=== PATIENT | male | born 1940 | race African-American/Black ===

== ENCOUNTER → 2016-08-14 | Outpatient (CLI) | payer MEDICARE, OTHER ==
[2014-06-28 10:47] VITALS: BP 120/70
[~2016-08-14] MED LIST: ATROVENT HFA12.9 GM IH; CONTRAST GIVEN MC PRN; FLUT1DIS3 IH; INSU100I17 SQ; INSU100I27 SQ; IOHEXOL 300 MG/ML 75 ML VIAL IV ONE; LOSA1TAB17 PO; METF500T9 PO; PROAIR HFA8.5 GM INH; WARF1TAB74 PO; WARF5TAB7 PO
[2016-08-14 08:16] LABS: CREATININE 1.5 mg/dL (0.7-1.3); GFR 54.9
--- NOTE | 2016-08-14 09:06 | RAD ---
Indication follow-up lung malignancy. Contrast imaging through the chest was performed and is compared to an examination 02/02/2016. 60 cc of Omnipaque 300 were administered intravenously. No acute or significant finding is seen in the upper abdomen. The thoracic aorta appears unremarkable. Coronary artery calcification is noted. No significant hilar or mediastinal adenopathy is seen. Postoperative/therapeutic changes are noted in the right upper lung field. An acute finding in the chest is not seen. There is some minimal pleural thickening in the right midlung posteriorly unchanged. In the superior segment of the left lower lobe there is a slightly bilobed pulmonary nodule measuring 8 to 9 mm, image 15 series 2, clearly larger than on the previous exam. The nodule is not apparent on an examination 07/27/2015. Neoplastic disease, second primary, is the leading consideration. Isolated metastatic disease accounting for the finding is possible but felt less likely. IMPRESSION: No evidence of tumor recurrence in the right lung. Nodule in the left lung larger than on the previous examination very suspect for a second primary. PQRS Compliance Statement: One or more of the following individualized dose reduction techniques were utilized for this examination: 1. Automated exposure control 2. Adjustment of the mA and/or kV according to patient size 3. Use of iterative reconstruction technique
== END | disposition home or self-care (01) ==
LOC: CT 07:29
PROVIDERS: ATTEND Radiology Radiation Oncology
DX: C34.90 Malignant neoplasm of unspecified part of unspecified bronchus or lung (principal)
CPT/HCPCS: 36415; 71260; 82565; Q9967

== ENCOUNTER → 2016-11-20 | Outpatient (CLI) | payer MEDICARE ==
[2014-06-28 10:47] VITALS: BP 120/70
[~2016-11-20] MED LIST changes: -CONTRAST GIVEN MC PRN; -IOHEXOL 300 MG/ML 75 ML VIAL IV ONE; +METF100010 PO
--- NOTE | 2016-11-20 10:24 | RAD ---
Examination: CT chest without contrast History: History of lung cancer, lung nodule follow-up comparison: 08/14/2016 Technique: Axial CT images of the chest were performed with contrast. Coronal and sagittal reformats were performed PQRS Compliance Statement: One or more of the following individualized dose reduction techniques were utilized for this examination: 1. Automated exposure control 2. Adjustment of the mA and/or kV according to patient size 3. Use of iterative reconstruction technique Findings: The visualized thyroid gland grossly appears unremarkable. The central airways are patent. Postoperative changes identified in the right upper lobe with the linear scarring or chronic consolidation grossly similar to prior exam. There is a 8.5 mm nodule identified in the left lower lobe of the lung superiorly and medially, more or less similar in size compared to prior exam. No evidence of pleural effusion or pneumothorax. Diffuse coronary artery calcifications. The ascending aorta measures 3.6 cm in transverse dimension. The visualized noncontrasted liver, spleen, adrenals grossly appears unremarkable. Moderate degenerative changes thoracic spine. Impression: 1. The previously visualized pulmonary nodule is identified in the left lower lobe of the lung measuring 8.5 mm more or less similar to prior exam, although it appears prominent on the coronal image series 5 image 67 compared to prior prior CT exam on coronal image series 4 image 41 which is probably due to difference in slice thickness between the 2 CTs. Given increase in size from 02/02/2016 to 08/14/2016 , close interval follow-up CT in 3 months is recommended. 2. Post therapeutic changes right upper lobe of the lung.
== END | disposition home or self-care (01) ==
LOC: CT 07:45
PROVIDERS: ATTEND Radiology Radiation Oncology
DX: C34.90 Malignant neoplasm of unspecified part of unspecified bronchus or lung (principal)
CPT/HCPCS: 71250

== ENCOUNTER → 2017-05-14 | Outpatient (CLI) | payer MEDICARE | END | disposition home or self-care (01) | LOC: CT 09:37 | DX: C34.91 Malignant neoplasm of unspecified part of right bronchus or lung (principal); I77.810 Thoracic aortic ectasia; I70.0 Atherosclerosis of aorta; R91.1 Solitary pulmonary nodule; Z92.3 Personal history of irradiation; Z92.21 Personal history of antineoplastic chemotherapy | CPT/HCPCS: 71250 ==

== ENCOUNTER → 2017-05-23 | Outpatient (CLI) | payer MEDICARE | END | disposition home or self-care (01) | LOC: PETSC 11:26 | DX: C34.91 Malignant neoplasm of unspecified part of right bronchus or lung (principal); J98.11 Atelectasis; R91.1 Solitary pulmonary nodule | CPT/HCPCS: 78815; A9552 ==

== ENCOUNTER 2018-11-29 20:21 | Inpatient (IN) | payer MEDICARE ==
[~2018-11-29] VITALS: Ht 175.3 cm; Wt 83.0 kg
[~2018-11-29 20:21] MED LIST changes: +ALBU2.5V8 INH; -LOSA1TAB17 PO; +LOSA1TAB22 PO; +METF500T11 PO; -METF500T9 PO; -PROAIR HFA8.5 GM INH; +WARF-31 PO; -WARF5TAB7 PO
[2018-11-29] MEDS ORDERED: IV NORMAL SALINE 1000ML BAG 1,000 ML IV ONE ×2 (20:30→23:15)
[2018-11-29] MEDS ORDERED: IV NORMAL SALINE 500ML BAG 500 ML IV ONE (20:30)
[2018-11-29 22:24] LABS: BASE EXCESS ABG -12 mmol/L (-3-3); HCO3 ABG 12 mmol/L (21-28); PCO2 ABG 24 mmHg (35-46); PO2 ABG 100 mmHg (65-108); SAT O2 ABG 97 % (92-99)
[2018-11-29 22:29] LABS: BASO # 0.1 x10^3/uL (0.0-0.2); BASO % 1 % (0-3); EOS % 0 % (0-3); HEMATOCRIT 52.1 % (39.0-53.0); HEMOGLOBIN 16.9 g/dL (13.0-17.5); LYMPH # 0.9 x10^3/uL (1.0-4.8); LYMPH % 5 % (24-48); MEAN CORPUSCULAR HEMOGLOBIN 28 pg (25-35); MEAN CORPUSCULAR HGB CONC 32 g/dL (31-37); MEAN CORPUSCULAR VOLUME 87 fL (79-100); MONO # 0.8 x10^3/uL (0.0-1.1); MONO % 5 % (0-9); NEUT # 16.1 x10^3/uL (1.8-7.7); NEUT % 90 % (31-73); PLATELET COUNT 330 x10^3/uL (140-400); RED BLOOD COUNT 6.02 x10^6/uL (4.30-5.70); RED CELL DISTRIBUTION WIDTH 14.6 % (11.5-14.5)
[2018-11-29 22:43] LABS: ALBUMIN 3.9 g/dL (3.4-5.0); ALBUMIN/GLOBULIN RATIO 0.8 (1.0-1.7); CALCIUM 10.3 mg/dL (8.5-10.1); CREATININE 2.6 mg/dL (0.7-1.3); GFR 28.9; TOTAL BILIRUBIN 0.5 mg/dL (0.2-1.0); TOTAL PROTEIN 9.1 g/dL (6.4-8.2)
[2018-11-29] MEDS ORDERED: LIDOCAINE 2% JELLY 6ML IN APPLICATOR. MM ONE (22:45)
[2018-11-29 22:47] LABS: FIO2 ABG 21
[2018-11-29 22:51] LABS: % BANDS 2 % (0-9); % LYMPHS 3 % (24-48); % MONOS 5 % (0-10); % SEGS 90 % (35-66); PLT ESTIMATE ADEQUATE (ADEQUATE)
[2018-11-29 22:58] LABS: POTASSIUM 6.6 mmol/L (3.5-5.1)
[2018-11-29 23:00] LABS: BILIRUBIN,URINE NEGATIVE (NEG); CLARITY,URINE CLOUDY; COLOR,URINE YELLOW; NITRITE,URINE NEGATIVE (NEG); PROTEIN,URINE NEGATIVE (NEG-TRACE); UROBILINOGEN,URINE 0.2 mg/dL (0.2 mg/dL)
[2018-11-29 23:09] LABS: BACTERIA,URINE 0 /HPF (0-FEW); WBC,URINE 0 /HPF (0-4)
[2018-11-29 23:10] LABS: AMORPHOUS SEDIMENT,UR PRESENT /HPF; SQUAMOUS EPITHELIAL CELL,UR FEW /LPF
[2018-11-29] MEDS ORDERED: INSULIN REGULAR 100 UNIT/ML 3ML VIAL. IV ONE (23:15)
[2018-11-29] MEDS ORDERED: INSULIN,REGULAR 150 UNIT DRIP 150 ML IV ONE (23:15)
[2018-11-29] MEDS ORDERED: SODIUM BICARB ADULT 8.4% 50 MEQ/50 ML DISP.SYRIN. IV ONE (23:15)
[2018-11-29] MEDS ORDERED: CALCIUM GLUCONATE 1,000 MG/10 ML VIAL. IVP ONE (23:15)
[2018-11-29] MEDS ORDERED: IV NORMAL SALINE 1000ML BAG 1,000 ML IV SCH (23:30)
[2018-11-30] VITALS (15 sets, daily range): BP systolic 90–143; BP diastolic 53–83
--- NOTE | 2018-11-30 01:04 | PHYS DOC ---
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 HX LMITED BY THE PATIENT DEMENTIA PER EMS, PT HAS BEEN OUT OF MEDS FOR A MONTH NOW DUE TO LAPSE IN INSURANCE INCLUDING NO DIABETES ORAL MEDICATION OR INSULIN BOTH OF WHICH HE IS SUPPOSED TO BE ON Review of Systems Review of Systems [place] BY DEMENTIA AND AMS Current Medications Current Medications Current Medications Medications (Trade) Dose Ordered Sig/Vance Start Time Stop Time Status Last Admin Dose Admin Calcium Gluconate (Calcium Gluconate) 1,000 mg 1X ONCE 11/29/18 23:15 11/29/18 23:16 DC 11/29/18 23:15 1,000 MG Insulin Human Regular 150 ml @ 0 mls/hr 1X ONCE 11/29/18 23:15 11/29/18 23:16 DC 11/29/18 23:55 18.4 MLS/HR Insulin Human Regular (HumuLIN R VIAL) 10 unit 1X ONCE 11/29/18 23:15 11/29/18 23:16 DC 11/29/18 23:40 10 UNIT Lidocaine HCl (Glydo (Lidocaine) Jelly) 1 fiordaliza 1X ONCE 11/29/18 22:45 11/29/18 22:46 DC 11/29/18 23:14 1 FIORDALIZA Sodium Bicarbonate (Sodium Bicarb Adult 8.4% Syr) 50 meq 1X ONCE 11/29/18 23:15 11/29/18 23:16 DC 11/29/18 23:25 50 MEQ Sodium Chloride 1,000 ml @ 125 mls/hr Q8H 11/29/18 23:30 11/30/18 23:29 Allergies Allergies Allergies Coded Allergies Type Severity Reaction Last Updated Verified No Known Drug Allergies 07/01/13 No Physical Exam Physical Exam Constitutional: Well developed, well nourished,MILD DISTRESS HENT: Normocephalic, atraumatic, bilateral external ears normal, oropharynx VERY DRY, no oral exudates, nose normal. [] Eyes: PERRLA, EOMI, conjunctiva normal, no discharge. [] Neck: Normal range of motion, no tenderness, supple, no stridor. [] Cardiovascular:Heart rate regular rhythm, no murmur [] Lungs & Thorax: Bilateral breath sounds clear to auscultation [] Abdomen: Bowel sounds normal, soft, no tenderness, no masses, no pulsatile masses. [] Skin: Warm, dry, no erythema, no rash. [] Back: No tenderness, no CVA tenderness. [] Extremities: No tenderness, no cyanosis, no clubbing, ROM intact, no edema. [] Neurologic: ABLE TO FOLLOW COMMANDS KNOWS NAME MOVING ALL EXTREMITIES GCS 14 A AND OX 1-2 INTERMITTENTLY YELLS BUT REDIRECTABLE. Psychologic: INTERMITTENTLY AGITATED Current Patient Data Vital Signs Vital Signs Date Time Temp Pulse Resp B/P (MAP) Pulse Ox O2 Delivery O2 Flow Rate FiO2 11/29/18 23:45 104 34 149/73 (98) 99 Nasal Cannula 2.0 11/29/18 23:00 97.5 97.5 Lab Values Laboratory Tests Test 11/29/18 21:47 11/29/18 22:17 11/29/18 22:50 O2 Saturation 97 % (92-99) Arterial Blood pH 7.32 (7.35-7.45) L Arterial Blood pCO2 at Patient Temp 24 mmHg (35-46) L Arterial Blood pO2 at Patient Temp 100 mmHg (65-108) Arterial Blood HCO3 12 mmol/L (21-28) L Arterial Blood Base Excess -12 mmol/L (-3-3) L FiO2 21 White Blood Count 18.0 x10^3/uL (4.0-11.0) H Red Blood Count 6.02 x10^6/uL (4.30-5.70) H Hemoglobin 16.9 g/dL (13.0-17.5) Hematocrit 52.1 % (39.0-53.0) Mean Corpuscular Volume 87 fL (79-100) Mean Corpuscular Hemoglobin 28 pg (25-35) Mean Corpuscular Hemoglobin Concent 32 g/dL (31-37) Red Cell Distribution Width 14.6 % (11.5-14.5) H Platelet Count 330 x10^3/uL (140-400) Neutrophils (%) (Auto) 90 % (31-73) H Lymphocytes (%) (Auto) 5 % (24-48) L Monocytes (%) (Auto) 5 % (0-9) Eosinophils (%) (Auto) 0 % (0-3) Basophils (%) (Auto) 1 % (0-3) Neutrophils # (Auto) 16.1 x10^3/uL (1.8-7.7) H Lymphocytes # (Auto) 0.9 x10^3/uL (1.0-4.8) L Monocytes # (Auto) 0.8 x10^3/uL (0.0-1.1) Eosinophils # (Auto) 0.0 x10^3/uL (0.0-0.7) Basophils # (Auto) 0.1 x10^3/uL (0.0-0.2) Segmented Neutrophils % 90 % (35-66) H Band Neutrophils % 2 % (0-9) Lymphocytes % 3 % (24-48) L Monocytes % 5 % (0-10) Platelet Estimate Adequate (ADEQUATE) Sodium Level 134 mmol/L (136-145) L Potassium Level 6.6 mmol/L (3.5-5.1) *H Chloride Level 93 mmol/L (98-107) L Carbon Dioxide Level 17 mmol/L (21-32) L Anion Gap 24 (6-14) H Blood Urea Nitrogen 54 mg/dL (8-26) H Creatinine 2.6 mg/dL (0.7-1.3) H Estimated GFR (Cockcroft-Gault) 28.9 BUN/Creatinine Ratio 21 (6-20) H Glucose Level 978 mg/dL (70-99) *H Calcium Level 10.3 mg/dL (8.5-10.1) H Total Bilirubin 0.5 mg/dL (0.2-1.0) Aspartate Amino Transferase (AST) 15 U/L (15-37) Alanine Aminotransferase (ALT) 12 U/L (16-63) L Alkaline Phosphatase 135 U/L (46-116) H Troponin I Quantitative < 0.017 ng/mL (0.000-0.055) Total Protein 9.1 g/dL (6.4-8.2) H Albumin 3.9 g/dL (3.4-5.0) Albumin/Globulin Ratio 0.8 (1.0-1.7) L Lipase 473 U/L (73-393) H Urine Collection Type U cath Urine Color Yellow Urine Clarity Cloudy Urine pH 5.0 Urine Specific [place] >=1.030 Urine Protein Negative mg/dL (NEG-TRACE) Urine Glucose (UA) >=1000 mg/dL (NEG) Urine Ketones (Stick) 15 mg/dL (NEG) Urine Blood Moderate (NEG) Urine Nitrite Negative (NEG) Urine Bilirubin Negative (NEG) Urine Urobilinogen Dipstick 0.2 mg/dL (0.2 mg/dL) Urine Leukocyte Esterase Negative (NEG) Urine RBC 1-2 /HPF (0-2) Urine WBC 0 /HPF (0-4) Urine Squamous Epithelial Cells Few /LPF Urine Amorphous Sediment Present /HPF Urine Bacteria 0 /HPF (0-FEW) Urine Mucus Slight /LPF Laboratory Tests 11/29/18 22:17 Laboratory Tests 11/29/18 22:17 EKG EKG []EKG shows a sinus tachycardia rate of 108 there are slightly peaked T waves no STEMI QTC 435 interpreted by me time of encounter Radiology/Procedures Radiology/Procedures [] Impressions: CXR NO DEFINITE ABNORMALITY SEEN THAT IS NEW. THE OPACITY RIGHT UPPER LUNG LOOKS SIMILAR COMPARD TO PRIOR CHEST CT Course & Med Decision Making Course & Med Decision Making Pertinent Labs and Imaging studies reviewed. (See chart for details) []78-year-old male history of diabetes cancer hypertension dementia who is brought in by ambulance with high blood sugar has not had insulin her medication for 1 month to prolapsing insurance apparently the history is somewhat limited as the family is not here to interview at this time. ER workup was called. By the fact that the patient is an extremely hard stick. Ultimately we did obtain lab work we saw blood sugar over 900 potassium 6.6 creatinine 2.6 there were some slightly peaked T waves on the EKG so we ordered stat calcium gluconate sodium bicarbonate insulin bolus as well as drip with IV fluid resuscitation. I did speak with Dr. Saul at approximately 12 AM regarding this case due to the transfer to the intensive care unit. I did talk with about pending CT abdomen and pelvis as well noncontrast due to elevation of lipase and white blood cell count elevation of the abdomen really was not tender in the emergency room Critical care time was 35 minutes exclusive of procedures. Dragon Disclaimer Dragon Disclaimer This electronic medical record was generated, in whole or in part, using a voice recognition dictation system. Departure Departure Impression: Primary Impression: Hyperglycemia Additional Impression: Hyperkalemia Disposition: 09 ADMITTED INPATIENT Admitting Physician: WALTER Condition: GUARDED Referrals: RAMO BROOKS MD (PCP) Problem Qualifiers ELSA NÚÑEZ MD Nov 30, 2018 01:04
[2018-11-30 01:39] LABS: CALCIUM 7.3 mg/dL (8.5-10.1); CREATININE 1.8 mg/dL (0.7-1.3); GFR 44.1; POTASSIUM 3.7 mmol/L (3.5-5.1)
[2018-11-30] MEDS ORDERED: POTASSIUM CHLORIDE 10MEQ 100 ML IV SCH ×4 (02:00→06:00)
[2018-11-30] MEDS ORDERED: SODIUM BICARBONATE VIAL 50 MEQ in IV 1/2 NORMAL SALINE 1,000 ML IV PRN (02:37)
[2018-11-30] MEDS ORDERED: SODIUM PHOSPHATE 20 MMOL in IV DEXTROSE 5% 250 ML IV PRN (02:45)
[2018-11-30] MEDS ORDERED: INSULIN REGULAR VIAL 150 UNIT in 0.9 % SODIUM CHLORIDE 150ML 150 ML IV PRN (02:45)
[2018-11-30] MEDS ORDERED: SODIUM PHOSPHATE 10 MMOL in IV DEXTROSE 5% 250 ML IV PRN (02:45)
[2018-11-30] MEDS ORDERED: POTASSIUM CHLORIDE 10MEQ 100 ML IV PRN ×3 (02:45)
[2018-11-30] MEDS ORDERED: SODIUM PHOSPHATE 40 MMOL in IV NORMAL SALINE 500ML BAG 500 ML IV PRN (02:45)
--- NOTE | 2018-11-30 02:45 | RAD ---
Study: CT abdomen and pelvis without contrast Indication: Pancreatitis. Renal failure. Rule out pseudocyst. Comparison: None available. Technique: Helical CT imaging performed of the abdomen and pelvis without the use of intravenous contrast. Sagittal and coronal reformats were obtained. One or more of the following individualized dose reduction techniques were utilized for this examination: 1. Automated exposure control 2. Adjustment of the mA and/or kV according to patient size 3. Use of iterative reconstruction technique. Findings: Faint rounded areas of groundglass opacification at the dependent aspect of the right lower lobe. Calcific coronary artery disease. The mediastinum is deviated to the right which is likely related to volume loss that is not well seen given history of right lung cancer with radiation therapy. Scattered splenic granulomas. No suspicious abnormality of the liver or adrenal glands on this unenhanced study. Additionally, evaluation is degraded by motion artifact greatest at the upper abdomen. This motion artifact degrades evaluation of the pancreas though there does appear to be some low-attenuation along the pancreatic body and tail. [employer] area of low attenuation interposed between the pancreatic body and small bowel, image 29 series 2. Apparent low attenuation along the anterior/inferior aspect of the spleen, image 31 series 2, could be artifactual as a similar appearance is seen along the upper aspect of the kidney. No gross renal abnormality. No hydroureteronephrosis. A Sena catheter is present and surrounded by a collapsed urinary bladder. The prostate is normal in size. No focal colonic abnormality. The appendix is normal. Nonobstructed small bowel. The stomach is incompletely evaluated on account of underdistention, particularly in the fundal region. Multifocal calcific atherosclerosis involving abdominal aorta and bilateral iliofemoral systems without aneurysmal dilatation. No lymphadenopathy identified. No acute abnormality of the body wall soft tissues. Grade 1 anterolisthesis of L4 on L5. No acute or destructive osseous abnormality. Dextrocurvature centered at the T12 level. Impression: 1. The study is degraded by motion artifact, particularly at the upper abdomen. 2. There may be a small amount of low attenuation along the pancreatic body and tail which could represent a manifestation of mild pancreatitis especially given provided history. Recommend correlation with lipase levels. No large pseudocyst is readily apparent, as queried. Area of low attenuation along the anterior/inferior aspect of the spleen may be artifactual from motion or could represent a small amount of fluid relating to pancreatitis. 3. Patchy areas of groundglass opacity at the dependent aspect of the right lower lung. The appearance is nonspecific but a component of mild aspiration is a consideration given location. 4. Calcific coronary artery disease as well as additional chronic findings as detailed above. Electronically signed by: CATRINA STERLING MD (11/30/2018 2:43 AM) [id number]
[2018-11-30] MEDS ORDERED: POTASSIUM CHLORIDE 10MEQ 100 ML IV ONE (03:00)
[2018-11-30] MEDS ORDERED: IV 1/2 NORMAL SALINE 1,000 ML IV SCH ×2 (03:00→09:00)
--- NOTE | 2018-11-30 03:00 | NUR ---
Patient admitted to room 110, patient transferred to bed, placed on monitor. IV insulin restarted. Patient only alert to self, unable to answer questions. Attempt made to orient patient to room, call light, and hospital protocols- unable to understand. Blood sugar immediately taken- was 547. Dr. Saul called and retrieved orders to start DKA protocol. Family was present with patient and was notified of admission per report from [employer]
[2018-11-30 03:09] LABS: MAGNESIUM 2.7 mg/dL (1.8-2.4); PHOSPHORUS 4.2 mg/dL (2.6-4.7)
--- NOTE | 2018-11-30 03:14 | NUR ---
Reassessments of IVF not completed by ED RN. Marked as "not done" by this RN.
[2018-11-30] MEDS: POTASSIUM CHLORIDE 10MEQ 100 ML IV ONE ×2 (05:00→05:03)
--- NOTE | 2018-11-30 05:14 | RAD ---
Study: PORTABLE CHEST 1V Indication: Weakness. Comparison: Correlation is made to the CT of the chest from 05/14/2017 Findings: Redemonstrated consolidative changes at the right upper lung with associated volume loss and deviation of the cardiomediastinal silhouette/trachea to the right. No newly seen airspace opacity. No pneumothorax or large effusion. No free air seen under the diaphragm. Impression: Unchanged opacification with volume loss at the right upper lung with corresponding rightward tracheal/mediastinal deviation. No newly seen abnormality of the chest. Electronically signed by: CATRINA STERLING MD (11/30/2018 5:10 AM) [id number]
[2018-11-30] MEDS ORDERED: IV DEXTROSE 5 %-0.45 % NACL 1,000 ML IV SCH (07:00)
[2018-11-30 08:16] LABS: BASO # 0.2 x10^3/uL (0.0-0.2); BASO % 1 % (0-3); EOS % 0 % (0-3); HEMATOCRIT 43.1 % (39.0-53.0); HEMOGLOBIN 14.6 g/dL (13.0-17.5); LYMPH # 1.4 x10^3/uL (1.0-4.8); LYMPH % 8 % (24-48); MEAN CORPUSCULAR HEMOGLOBIN 28 pg (25-35); MEAN CORPUSCULAR HGB CONC 34 g/dL (31-37); MONO # 0.9 x10^3/uL (0.0-1.1); MONO % 5 % (0-9); NEUT # 14.2 x10^3/uL (1.8-7.7); NEUT % 85 % (31-73); PLATELET COUNT 308 x10^3/uL (140-400); RED BLOOD COUNT 5.29 x10^6/uL (4.30-5.70); RED CELL DISTRIBUTION WIDTH 14.4 % (11.5-14.5); WHITE BLOOD COUNT 16.7 x10^3/uL (4.0-11.0)
[2018-11-30 08:31] LABS: MEAN CORPUSCULAR VOLUME 81 fL (79-100)
[2018-11-30 08:34] LABS: ALBUMIN 3.3 g/dL (3.4-5.0); ALBUMIN/GLOBULIN RATIO 0.8 (1.0-1.7); CALCIUM 9.5 mg/dL (8.5-10.1); CREATININE 1.8 mg/dL (0.7-1.3); GFR 44.1; POTASSIUM 4.2 mmol/L (3.5-5.1); TOTAL BILIRUBIN 0.4 mg/dL (0.2-1.0); TOTAL PROTEIN 7.7 g/dL (6.4-8.2)
[2018-11-30 08:40] LABS: PROTHROMBIN TIME PATIENT 13.9 SEC (11.7-14.0)
[2018-11-30] MEDS ORDERED: DEXTROSE 50% 25 GM / 50ML DISP.SYRIN. IV PRN (08:45)
--- NOTE | 2018-11-30 08:50 | PDOC1 ---
History and Physical Date of Admission Date of Admission DATE: 11/30/18 TIME: 08:43 Source Source: Chart review, Patient History of Present Illness History of Present Illness Mr. Ventura is an 78 year old male. Family called EMS for lethargy and weakness and poor PO intake. EMS found him to be markedly hyperglycemic, and blood sugar 900 range. Family reports meds stopped 1 month ago due to problem with insurance. He still lives at home with his . He has recent lung cancer history, had been treated by Dr. Costa, and it seems some treatment has been stopped Past Medical History Cardiovascular: HTN, Hyperlipidemia GI: GERD ENT: No pertinent hx Renal/: No pertinent hx Family History Family History: Hypertension Social History Smoke: No ALCOHOL: none Current Medications Current Medications Current Medications Sodium Chloride 1,000 ml @ 1,000 mls/hr 1X ONCE IV Last administered on 11/29/18at 22:00; Start 11/29/18 at 20:30; Stop 11/29/18 at 21:29; Status DC Sodium Chloride 500 ml @ 500 mls/hr 1X ONCE IV Last administered on 11/29/18at 23:12; Start 11/29/18 at 20:30; Stop 11/29/18 at 21:29; Status DC Lidocaine HCl (Glydo (Lidocaine) Jelly) 1 fiordaliza 1X ONCE MM Last administered on 11/29/18at 23:14; Start 11/29/18 at 22:45; Stop 11/29/18 at 22:46; Status DC Insulin Human Regular (HumuLIN R VIAL) 10 unit 1X ONCE IV Last administered on 11/29/18at 23:40; Start 11/29/18 at 23:15; Stop 11/29/18 at 23:16; Status DC Insulin Human Regular 150 ml @ 0 mls/hr 1X ONCE IV Last administered on 11/29/18at 23:55; Start 11/29/18 at 23:15; Stop 11/29/18 at 23:16; Status DC Sodium Bicarbonate (Sodium Bicarb Adult 8.4% Syr) 50 meq 1X ONCE IV Last administered on 11/29/18at 23:25; Start 11/29/18 at 23:15; Stop 11/29/18 at 23:16; Status DC Sodium Chloride 1,000 ml @ 1,000 mls/hr 1X ONCE IV Last administered on 11/29/18at 23:57; Start 11/29/18 at 23:15; Stop 11/30/18 at 00:14; Status DC Calcium Gluconate (Calcium Gluconate) 1,000 mg 1X ONCE IVP Last administered on 11/29/18at 23:15; Start 11/29/18 at 23:15; Stop 11/29/18 at 23:16; Status DC Sodium Chloride 1,000 ml @ 125 mls/hr Q8H IV Last administered on 11/30/18at 02:23; Start 11/29/18 at 23:30; Stop 11/30/18 at 02:51; Status DC Potassium Chloride/Water 100 ml @ 100 mls/hr Q1H IV Last administered on 11/30/18at 02:23; Start 11/30/18 at 02:00; Stop 11/30/18 at 02:59; Status DC Sodium Chloride 1,000 ml @ 250 mls/hr Q4H IV Last administered on 11/30/18at 0 2:55; Start 11/30/18 at 03:00; Stop 11/30/18 at 06:46; Status DC Insulin Human Regular 150 unit/ Sodium Chloride 151.5 ml @ 0 mls/hr CONT PRN PRN IV PER PROTOCOL; Start 11/30/18 at 02:45 Potassium Chloride/Water 100 ml @ 100 mls/hr PRN Q1HR PRN IV SEE COMMENTS; Start 11/30/18 at 02:45 Potassium Chloride/Water 100 ml @ 100 mls/hr PRN Q1HR PRN IV SEE COMMENTS; Start 11/30/18 at 02:45 Potassium Chloride/Water 100 ml @ 100 mls/hr PRN Q1HR PRN IV SEE COMMENTS; Start 11/30/18 at 02:45 Magnesium Sulfate 100 ml @ 25 mls/hr DAILY IV ; Start 11/30/18 at 09:00; Stop 12/03/18 at 08:59 Sodium Bicarbonate 50 meq/Sodium Chloride 1,050 ml @ 500 mls/hr Q2H6M PRN IV SEE COMMENTS; Start 11/30/18 at 02:37; Status UNV Sodium Phosphate 40 mmol/Sodium Chloride 513.3333 ml @ 83.3 mls/hr 1X PRN PRN IV SEE COMMENTS; Start 11/30/18 at 02:45 Sodium Phosphate 20 mmol/Dextrose 256.6667 ml @ 62.5 mls/hr 1X PRN PRN IV SEE COMMENTS; Start 11/30/18 at 02:45 Sodium Phosphate 10 mmol/Dextrose 253.3333 ml @ 62.5 mls/hr 1X PRN PRN IV SEE COMMENTS; Start 11/30/18 at 02:45 Potassium Chloride/Water 100 ml @ 100 mls/hr Q1H IV ; Start 11/30/18 at 03:00; Stop 11/30/18 at 03:05; Status DC Potassium Chloride/Water 100 ml @ 100 mls/hr 1X ONCE IV Last administered on 11/30/18at 03:35; Start 11/30/18 at 03:00; Stop 11/30/18 at 03:59; Status DC Potassium Chloride/Water 100 ml @ 100 mls/hr 1X ONCE IV ; Start 11/30/18 at 05:00; Stop 11/30/18 at 05:59; Status DC Potassium Chloride/Water 100 ml @ 100 mls/hr Q1H IV Last administered on 11/30at 05:09; Start 11/30/18 at 06:00; Stop 11/30/18 at 06:59; Status DC Potassium Chloride/Water 100 ml @ 100 mls/hr Q1H IV Last administered on 11/30/18at 05:55; Start 11/30/18 at 06:00; Stop 11/30/18 at 06:59; Status DC Dextrose/Sodium Chloride 1,000 ml @ 250 mls/hr Q4H IV Last administered on 11/30/18at 07:17; Start 11/30/18 at 07:00 Active Scripts Active Reported Metformin Hcl Er (Metformin Hcl) 1,000 Mg Tab.er.24 1,000 Mg PO DAILYWBKFT Proair Hfa Inhaler (Albuterol Sulfate) 8.5 Gm Hfa.aer.ad 2 Puff INH PRN Q6HRS PRN Allergies Allergies: Coded Allergies: No Known Drug Allergies (Unverified , 07/01/13) ROS Review of System unable, confusion on dementia Physical Exam General: Alert, Cooperative, Other (not oriented 2/4) HEENT: Atraumatic Lungs: Clear to auscultation Heart: S1S2 Abdomen: Normal bowel sounds, Soft Extremities: No cyanosis, No edema, Normal pulses Skin: No significant lesion Neuro: Normal speech, Sensation intact, Cranial nerves 3-12 NL Psych/Mental Status: Mental status NL, Mood NL Vitals Vitals Vital Signs Date Time Temp Pulse Resp B/P (MAP) Pulse Ox O2 Delivery O2 Flow Rate FiO2 11/30/18 08:00 Room Air 11/30/18 08:00 97.5 97 16 125/65 (85) 95 97.5 11/30/18 00:45 2.0 Labs Labs Laboratory Tests Test 11/29/18 21:47 11/29/18 22:17 11/29/18 22:50 11/30/18 01:20 O2 Saturation 97 % (92-99) Arterial Blood pH 7.32 (7.35-7.45) Arterial Blood pCO2 at Patient Temp 24 mmHg (35-46) Arterial Blood pO2 at Patient Temp 100 mmHg (65-108) Arterial Blood HCO3 12 mmol/L (21-28) Arterial Blood Base Excess -12 mmol/L (-3-3) FiO2 21 White Blood Count 18.0 x10^3/uL (4.0-11.0) Red Blood Count 6.02 x10^6/uL (4.30-5.70) Hemoglobin 16.9 g/dL (13.0-17.5) Hematocrit 52.1 % (39.0-53.0) Mean Corpuscular Volume 87 fL (79-100) Mean Corpuscular Hemoglobin 28 pg (25-35) Mean Corpuscular Hemoglobin Concent 32 g/dL (31-37) Red Cell Distribution Width 14.6 % (11.5-14.5) Platelet Count 330 x10^3/uL (140-400) Neutrophils (%) (Auto) 90 % (31-73) Lymphocytes (%) (Auto) 5 % (24-48) Monocytes (%) (Auto) 5 % (0-9) Eosinophils (%) (Auto) 0 % (0-3) Basophils (%) (Auto) 1 % (0-3) Neutrophils # (Auto) 16.1 x10^3/uL (1.8-7.7) Lymphocytes # (Auto) 0.9 x10^3/uL (1.0-4.8) Monocytes # (Auto) 0.8 x10^3/uL (0.0-1.1) Eosinophils # (Auto) 0.0 x10^3/uL (0.0-0.7) Basophils # (Auto) 0.1 x10^3/uL (0.0-0.2) Segmented Neutrophils % 90 % (35-66) Band Neutrophils % 2 % (0-9) Lymphocytes % 3 % (24-48) Monocytes % 5 % (0-10) Platelet Estimate Adequate (ADEQUATE) Sodium Level 134 mmol/L (136-145) 146 mmol/L (136-145) Potassium Level 6.6 mmol/L (3.5-5.1) 3.7 mmol/L (3.5-5.1) Chloride Level 93 mmol/L (98-107) 115 mmol/L (98-107) Carbon Dioxide Level 17 mmol/L (21-32) 13 mmol/L (21-32) Anion Gap 24 (6-14) 18 (6-14) Blood Urea Nitrogen 54 mg/dL (8-26) 42 mg/dL (8-26) Creatinine 2.6 mg/dL (0.7-1.3) 1.8 mg/dL (0.7-1.3) Estimated GFR (Cockcroft-Gault) 28.9 44.1 BUN/Creatinine Ratio 21 (6-20) Glucose Level 978 mg/dL (70-99) 481 mg/dL (70-99) Calcium Level 10.3 mg/dL (8.5-10.1) 7.3 mg/dL (8.5-10.1) Total Bilirubin 0.5 mg/dL (0.2-1.0) Aspartate Amino Transf (AST/SGOT) 15 U/L (15-37) Alanine Aminotransferase (ALT/SGPT) 12 U/L (16-63) Alkaline Phosphatase 135 U/L (46-116) Troponin I Quantitative < 0.017 ng/mL (0.000-0.055) Total Protein 9.1 g/dL (6.4-8.2) Albumin 3.9 g/dL (3.4-5.0) Albumin/Globulin Ratio 0.8 (1.0-1.7) Lipase 473 U/L (73-393) Urine Collection Type U cath Urine Color Yellow Urine Clarity Cloudy Urine pH 5.0 Urine Specific Todd >=1.030 Urine Protein Negative mg/dL (NEG-TRACE) Urine Glucose (UA) >=1000 mg/dL (NEG) Urine Ketones (Stick) 15 mg/dL (NEG) Urine Blood Moderate (NEG) Urine Nitrite Negative (NEG) Urine Bilirubin Negative (NEG) Urine Urobilinogen Dipstick 0.2 mg/dL (0.2 mg/dL) Urine Leukocyte Esterase Negative (NEG) Urine RBC 1-2 /HPF (0-2) Urine WBC 0 /HPF (0-4) Urine Squamous Epithelial Cells Few /LPF Urine Amorphous Sediment Present /HPF Urine Bacteria 0 /HPF (0-FEW) Urine Mucus Slight /LPF Phosphorus Level 4.2 mg/dL (2.6-4.7) Magnesium Level 2.7 mg/dL (1.8-2.4) Test 11/30/18 02:19 11/30/18 03:27 11/30/18 04:28 11/30/18 05:33 Glucose (Fingerstick) 547 mg/dL (70-99) 374 mg/dL (70-99) 315 mg/dL (70-99) 258 mg/dL (70-99) Test 11/30/18 06:36 11/30/18 07:45 11/30/18 08:05 Glucose (Fingerstick) 139 mg/dL (70-99) 182 mg/dL (70-99) White Blood Count 16.7 x10^3/uL (4.0-11.0) Red Blood Count 5.29 x10^6/uL (4.30-5.70) Hemoglobin 14.6 g/dL (13.0-17.5) Hematocrit 43.1 % (39.0-53.0) Mean Corpuscular Volume 81 fL (79-100) Mean Corpuscular Hemoglobin 28 pg (25-35) Mean Corpuscular Hemoglobin Concent 34 g/dL (31-37) Red Cell Distribution Width 14.4 % (11.5-14.5) Platelet Count 308 x10^3/uL (140-400) Neutrophils (%) (Auto) 85 % (31-73) Lymphocytes (%) (Auto) 8 % (24-48) Monocytes (%) (Auto) 5 % (0-9) Eosinophils (%) (Auto) 0 % (0-3) Basophils (%) (Auto) 1 % (0-3) Neutrophils # (Auto) 14.2 x10^3/uL (1.8-7.7) Lymphocytes # (Auto) 1.4 x10^3/uL (1.0-4.8) Monocytes # (Auto) 0.9 x10^3/uL (0.0-1.1) Eosinophils # (Auto) 0.0 x10^3/uL (0.0-0.7) Basophils # (Auto) 0.2 x10^3/uL (0.0-0.2) Sodium Level 150 mmol/L (136-145) Potassium Level 4.2 mmol/L (3.5-5.1) Chloride Level 113 mmol/L (98-107) Carbon Dioxide Level 26 mmol/L (21-32) Anion Gap 11 (6-14) Blood Urea Nitrogen 42 mg/dL (8-26) Creatinine 1.8 mg/dL (0.7-1.3) Estimated GFR (Cockcroft-Gault) 44.1 BUN/Creatinine Ratio 23 (6-20) Glucose Level 155 mg/dL (70-99) Calcium Level 9.5 mg/dL (8.5-10.1) Phosphorus Level 3.0 mg/dL (2.6-4.7) Magnesium Level 3.0 mg/dL (1.8-2.4) Total Bilirubin 0.4 mg/dL (0.2-1.0) Aspartate Amino Transf (AST/SGOT) 18 U/L (15-37) Alanine Aminotransferase (ALT/SGPT) 12 U/L (16-63) Alkaline Phosphatase 105 U/L (46-116) Total Protein 7.7 g/dL (6.4-8.2) Albumin 3.3 g/dL (3.4-5.0) Albumin/Globulin Ratio 0.8 (1.0-1.7) Laboratory Tests Test 11/29/18 21:47 11/29/18 22:17 11/29/18 22:50 11/30/18 01:20 O2 Saturation 97 % (92-99) Arterial Blood pH 7.32 (7.35-7.45) Arterial Blood pCO2 at Patient Temp 24 mmHg (35-46) Arterial Blood pO2 at Patient Temp 100 mmHg (65-108) Arterial Blood HCO3 12 mmol/L (21-28) Arterial Blood Base Excess -12 mmol/L (-3-3) FiO2 21 White Blood Count 18.0 x10^3/uL (4.0-11.0) Red Blood Count 6.02 x10^6/uL (4.30-5.70) Hemoglobin 16.9 g/dL (13.0-17.5) Hematocrit 52.1 % (39.0-53.0) Mean Corpuscular Volume 87 fL (79-100) Mean Corpuscular Hemoglobin 28 pg (25-35) Mean Corpuscular Hemoglobin Concent 32 g/dL (31-37) Red Cell Distribution Width 14.6 % (11.5-14.5) Platelet Count 330 x10^3/uL (140-400) Neutrophils (%) (Auto) 90 % (31-73) Lymphocytes (%) (Auto) 5 % (24-48) Monocytes (%) (Auto) 5 % (0-9) Eosinophils (%) (Auto) 0 % (0-3) Basophils (%) (Auto) 1 % (0-3) Neutrophils # (Auto) 16.1 x10^3/uL (1.8-7.7) Lymphocytes # (Auto) 0.9 x10^3/uL (1.0-4.8) Monocytes # (Auto) 0.8 x10^3/uL (0.0-1.1) Eosinophils # (Auto) 0.0 x10^3/uL (0.0-0.7) Basophils # (Auto) 0.1 x10^3/uL (0.0-0.2) Segmented Neutrophils % 90 % (35-66) Band Neutrophils % 2 % (0-9) Lymphocytes % 3 % (24-48) Monocytes % 5 % (0-10) Platelet Estimate Adequate (ADEQUATE) Sodium Level 134 mmol/L (136-145) 146 mmol/L (136-145) Potassium Level 6.6 mmol/L (3.5-5.1) 3.7 mmol/L (3.5-5.1) Chloride Level 93 mmol/L (98-107) 115 mmol/L (98-107) Carbon Dioxide Level 17 mmol/L (21-32) 13 mmol/L (21-32) Anion Gap 24 (6-14) 18 (6-14) Blood Urea Nitrogen 54 mg/dL (8-26) 42 mg/dL (8-26) Creatinine 2.6 mg/dL (0.7-1.3) 1.8 mg/dL (0.7-1.3) Estimated GFR (Cockcroft-Gault) 28.9 44.1 BUN/Creatinine Ratio 21 (6-20) Glucose Level 978 mg/dL (70-99) 481 mg/dL (70-99) Calcium Level 10.3 mg/dL (8.5-10.1) 7.3 mg/dL (8.5-10.1) Total Bilirubin 0.5 mg/dL (0.2-1.0) Aspartate Amino Transf (AST/SGOT) 15 U/L (15-37) Alanine Aminotransferase (ALT/SGPT) 12 U/L (16-63) Alkaline Phosphatase 135 U/L (46-116) Troponin I Quantitative < 0.017 ng/mL (0.000-0.055) Total Protein 9.1 g/dL (6.4-8.2) Albumin 3.9 g/dL (3.4-5.0) Albumin/Globulin Ratio 0.8 (1.0-1.7) Lipase 473 U/L (73-393) Urine Collection Type U cath Urine Color Yellow Urine Clarity Cloudy Urine pH 5.0 Urine Specific Todd >=1.030 Urine Protein Negative mg/dL (NEG-TRACE) Urine Glucose (UA) >=1000 mg/dL (NEG) Urine Ketones (Stick) 15 mg/dL (NEG) Urine Blood Moderate (NEG) Urine Nitrite Negative (NEG) Urine Bilirubin Negative (NEG) Urine Urobilinogen Dipstick 0.2 mg/dL (0.2 mg/dL) Urine Leukocyte Esterase Negative (NEG) Urine RBC 1-2 /HPF (0-2) Urine WBC 0 /HPF (0-4) Urine Squamous Epithelial Cells Few /LPF Urine Amorphous Sediment Present /HPF Urine Bacteria 0 /HPF (0-FEW) Urine Mucus Slight /LPF Phosphorus Level 4.2 mg/dL (2.6-4.7) Magnesium Level 2.7 mg/dL (1.8-2.4) Test 11/30/18 02:19 11/30/18 03:27 11/30/18 04:28 11/30/18 05:33 Glucose (Fingerstick) 547 mg/dL (70-99) 374 mg/dL (70-99) 315 mg/dL (70-99) 258 mg/dL (70-99) Test 11/30/18 06:36 11/30/18 07:45 11/30/18 08:05 Glucose (Fingerstick) 139 mg/dL (70-99) 182 mg/dL (70-99) White Blood Count 16.7 x10^3/uL (4.0-11.0) Red Blood Count 5.29 x10^6/uL (4.30-5.70) Hemoglobin 14.6 g/dL (13.0-17.5) Hematocrit 43.1 % (39.0-53.0) Mean Corpuscular Volume 81 fL (79-100) Mean Corpuscular Hemoglobin 28 pg (25-35) Mean Corpuscular Hemoglobin Concent 34 g/dL (31-37) Red Cell Distribution Width 14.4 % (11.5-14.5) Platelet Count 308 x10^3/uL (140-400) Neutrophils (%) (Auto) 85 % (31-73) Lymphocytes (%) (Auto) 8 % (24-48) Monocytes (%) (Auto) 5 % (0-9) Eosinophils (%) (Auto) 0 % (0-3) Basophils (%) (Auto) 1 % (0-3) Neutrophils # (Auto) 14.2 x10^3/uL (1.8-7.7) Lymphocytes # (Auto) 1.4 x10^3/uL (1.0-4.8) Monocytes # (Auto) 0.9 x10^3/uL (0.0-1.1) Eosinophils # (Auto) 0.0 x10^3/uL (0.0-0.7) Basophils # (Auto) 0.2 x10^3/uL (0.0-0.2) Sodium Level 150 mmol/L (136-145) Potassium Level 4.2 mmol/L (3.5-5.1) Chloride Level 113 mmol/L (98-107) Carbon Dioxide Level 26 mmol/L (21-32) Anion Gap 11 (6-14) Blood Urea Nitrogen 42 mg/dL (8-26) Creatinine 1.8 mg/dL (0.7-1.3) Estimated GFR (Cockcroft-Gault) 44.1 BUN/Creatinine Ratio 23 (6-20) Glucose Level 155 mg/dL (70-99) Calcium Level 9.5 mg/dL (8.5-10.1) Phosphorus Level 3.0 mg/dL (2.6-4.7) Magnesium Level 3.0 mg/dL (1.8-2.4) Total Bilirubin 0.4 mg/dL (0.2-1.0) Aspartate Amino Transf (AST/SGOT) 18 U/L (15-37) Alanine Aminotransferase (ALT/SGPT) 12 U/L (16-63) Alkaline Phosphatase 105 U/L (46-116) Total Protein 7.7 g/dL (6.4-8.2) Albumin 3.3 g/dL (3.4-5.0) Albumin/Globulin Ratio 0.8 (1.0-1.7) VTE Prophylaxis Ordered VTE Prophylaxis Devices: Yes VTE Pharmacological Prophylaxi: No Assessment/Plan Assessment/Plan diabetic keto acidosis, w. 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 Costa's last note weakness debility RISSA STARK MD Nov 30, 2018 08:50
[2018-11-30] MEDS: MAGNESIUM SULFATE 4GM 100 ML IV SCH (08:58)
[2018-11-30] MEDS ORDERED: INSULIN GLARGINE SYRINGE. SQ SCH (09:00)
[2018-11-30] MEDS: HEPARIN for SUB-Q USE 5,000 UNIT/ML VIAL. SQ SCH ×2 (09:04→21:05)
[2018-11-30] MEDS: INSULIN LISPRO 300 UNITS/3 ML VIAL. SQ SCH ×5 (09:05→17:10)
[2018-11-30] MEDS: INSULIN GLARGINE SYRINGE. SQ SCH (09:22)
--- NOTE | 2018-11-30 11:15 | EKG ---
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
[2018-11-30] MEDS ORDERED: INSULIN LISPRO 300 UNITS/3 ML VIAL. SQ SCH (12:00)
[2018-11-30] MEDS: IV DEXTROSE 5 %-0.45 % NACL 1,000 ML IV SCH (12:57)
--- NOTE | 2018-11-30 20:31 | NUR ---
Report called to Antony on 6SO. Patient has been up in the chair with the chair alarm on since change of shift. Pt denies pain at this time. VSS
--- NOTE | 2018-11-30 20:55 | NUR ---
TRANSFER NOTE: Patient arrived to room 656 at approximately 2050. Another RN assisted patient into bed and placed tele monitor. This RN resumed patient's IV fluids, placed on hold during transfer. Bed low, locked, bed alarm on, call light within reach. Will continue to monitor.
[2018-12-01] MEDS: IV DEXTROSE 5 %-0.45 % NACL 1,000 ML IV SCH ×2 (01:13→09:00)
[2018-12-01 03:25] VITALS: BP 99/56
[2018-12-01 05:02] LABS: PROTHROMBIN TIME PATIENT 14.3 SEC (11.7-14.0)
[2018-12-01 05:16] LABS: CALCIUM 9.2 mg/dL (8.5-10.1); CREATININE 1.6 mg/dL (0.7-1.3); GFR 50.6; POTASSIUM 4.4 mmol/L (3.5-5.1)
[2018-12-01 07:24] VITALS: BP 150/60
[2018-12-01] MEDS: INSULIN LISPRO 300 UNITS/3 ML VIAL. SQ SCH ×6 (08:00→17:00)
[2018-12-01] MEDS: INSULIN GLARGINE SYRINGE. SQ SCH (08:29)
--- NOTE | 2018-12-01 08:51 | NUR ---
Prebreakfast blood glucose of 377 mg/dl relayed to Dr. Saul at 0802, order to repeat blood glucose after an hour received. 15 units of insulin lispro given per protocol. We will continue to monitor.
[2018-12-01] MEDS: MAGNESIUM SULFATE 4GM 100 ML IV SCH (09:00)
[2018-12-01] MEDS: HEPARIN for SUB-Q USE 5,000 UNIT/ML VIAL. SQ SCH ×2 (10:32→21:31)
--- NOTE | 2018-12-01 10:47 | NUR ---
SW following pt for dc planning. Chart reviewed. Pt lives at home with son. Pt has PMHx Lung CA but has stopped treatment recently. There is a concern about pt stopping medication due to issue with insurance. EMR indicate pt has Medicare A&B. Palliative care consulted to address tx re CA DX. PT/OT notes reviewed. Plan 1. SW will await for PC discussion 2. PT/OT recommends SNU. Will await on PC discussion with family. 3. SW will continue to follow and Discussed with Palliative care nurse.
--- NOTE | 2018-12-01 10:55 | PDOC ---
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 Costa's last note ON CT , low attenuation along the pancreatic body and tail which could represent a manifestation of mild pancreatitis especially given provided history. Recommend correlation with lipase levels. No large pseudocyst is readily apparent, as queried. Area of low attenuation along the anterior/inferior aspect of the spleen may be artifactual from motion or could represent a small amount of fluid relating to pancreatitis. Patchy areas of groundglass opacity at the dependent aspect of the right lower lung. The appearance is nonspecific but a component of mild aspiration is a consideration given location. Calcific coronary artery disease as well as additional chronic findings as detailed above. weakness debility CONSULT PALLIATIVE CARE GI FOLLOWING Leukocytosis -better - reactive process Hyperglycemia - off meds prior to admit pancreatitis 12/01 confused, thinks this is [address] [facility] 38 MIN PT EXAM, CHART REVIEW, > 50% OF TIME SPENT WITH EXAM, CHART REVIEW, PT CARE COORDINATION Vitals Vitals Vital Signs Date Time Temp Pulse Resp B/P (MAP) Pulse Ox O2 Delivery O2 Flow Rate FiO2 12/01/18 08:00 Room Air 12/01/18 07:24 97.6 97 18 150/60 (90) 97 97.6 Physical Exam General: Alert, Cooperative, No acute distress, Other (not oriented 2/4) Heart: Regular rate Lungs: Clear Abdomen: Normal bowel sounds, Soft Extremities: No cyanosis, No edema, Normal pulses Skin: No significant lesion Labs LABS Study: CT abdomen and pelvis without contrast Indication: Pancreatitis. Renal failure. Rule out pseudocyst. Comparison: None available. Technique: Helical CT imaging performed of the abdomen and pelvis without the use of intravenous contrast. Sagittal and coronal reformats were obtained. One or more of the following individualized dose reduction techniques were utilized for this examination: 1. Automated exposure control 2. Adjustment of the mA and/or kV according to patient size 3. Use of iterative reconstruction technique. Findings: Faint rounded areas of groundglass opacification at the dependent aspect of the right lower lobe. Calcific coronary artery disease. The mediastinum is deviated to the right which is likely related to volume loss that is not well seen given history of right lung cancer with radiation therapy. Scattered splenic granulomas. No suspicious abnormality of the liver or adrenal glands on this unenhanced study. Additionally, evaluation is degraded by motion artifact greatest at the upper abdomen. This motion artifact degrades evaluation of the pancreas though there does appear to be some low-attenuation along the pancreatic body and tail. Fill Manager area of low attenuation interposed between the pancreatic body and small bowel, image 29 series 2. Apparent low attenuation along the anterior/inferior aspect of the spleen, image 31 series 2, could be artifactual as a similar appearance is seen along the upper aspect of the kidney. No gross renal abnormality. No hydroureteronephrosis. A Sena catheter is present and surrounded by a collapsed urinary bladder. The prostate is normal in size. No focal colonic abnormality. The appendix is normal. Nonobstructed small bowel. The stomach is incompletely evaluated on account of underdistention, particularly in the fundal region. Multifocal calcific atherosclerosis involving abdominal aorta and bilateral iliofemoral systems without aneurysmal dilatation. No lymphadenopathy identified. No acute abnormality of the body wall soft tissues. Grade 1 anterolisthesis of L4 on L5. No acute or destructive osseous abnormality. Dextrocurvature centered at the T12 level. Impression: 1. The study is degraded by motion artifact, particularly at the upper abdomen. 2. There may be a small amount of low attenuation along the pancreatic body and tail which could represent a manifestation of mild pancreatitis especially given provided history. Recommend correlation with lipase levels. No large pseudocyst is readily apparent, as queried. Area of low attenuation along the anterior/inferior aspect of the spleen may be artifactual from motion or could represent a small amount of fluid relating to pancreatitis. 3. Patchy areas of groundglass opacity at the dependent aspect of the right lower lung. The appearance is nonspecific but a component of mild aspiration is a consideration given location. 4. Calcific coronary artery disease as well as additional chronic findings as detailed above. Electronically signed by: CATRINA STERLING MD (11/30/2018 2:43 AM) [facility] DICTATED and SIGNED BY: CATRINA STERLING MD DATE: 11/30/18 0243 Laboratory Tests Test 11/30/18 12:42 11/30/18 13:12 11/30/18 17:08 11/30/18 21:12 Glucose (Fingerstick) 54 mg/dL (70-99) 116 mg/dL (70-99) 267 mg/dL (70-99) 246 mg/dL (70-99) Test 12/01/18 03:45 12/01/18 07:02 12/01/18 09:39 Prothrombin Time 14.3 SEC (11.7-14.0) Prothromb Time International Ratio 1.1 (0.8-1.1) Sodium Level 146 mmol/L (136-145) Potassium Level 4.4 mmol/L (3.5-5.1) Chloride Level 110 mmol/L (98-107) Carbon Dioxide Level 23 mmol/L (21-32) Anion Gap 13 (6-14) Blood Urea Nitrogen 33 mg/dL (8-26) Creatinine 1.6 mg/dL (0.7-1.3) Estimated GFR (Cockcroft-Gault) 50.6 Glucose Level 353 mg/dL (70-99) Calcium Level 9.2 mg/dL (8.5-10.1) Glucose (Fingerstick) 377 mg/dL (70-99) 427 mg/dL (70-99) Comment Review of Relevant I have reviewed the following items arabella (where applicable) has been applied. Labs Laboratory Tests Test 11/29/18 21:47 11/29/18 22:17 11/29/18 22:50 11/30/18 01:20 O2 Saturation 97 % (92-99) Arterial Blood pH 7.32 (7.35-7.45) Arterial Blood pCO2 at Patient Temp 24 mmHg (35-46) Arterial Blood pO2 at Patient Temp 100 mmHg (65-108) Arterial Blood HCO3 12 mmol/L (21-28) Arterial Blood Base Excess -12 mmol/L (-3-3) FiO2 21 White Blood Count 18.0 x10^3/uL (4.0-11.0) Red Blood Count 6.02 x10^6/uL (4.30-5.70) Hemoglobin 16.9 g/dL (13.0-17.5) Hematocrit 52.1 % (39.0-53.0) Mean Corpuscular Volume 87 fL (79-100) Mean Corpuscular Hemoglobin 28 pg (25-35) Mean Corpuscular Hemoglobin Concent 32 g/dL (31-37) Red Cell Distribution Width 14.6 % (11.5-14.5) Platelet Count 330 x10^3/uL (140-400) Neutrophils (%) (Auto) 90 % (31-73) Lymphocytes (%) (Auto) 5 % (24-48) Monocytes (%) (Auto) 5 % (0-9) Eosinophils (%) (Auto) 0 % (0-3) Basophils (%) (Auto) 1 % (0-3) Neutrophils # (Auto) 16.1 x10^3/uL (1.8-7.7) Lymphocytes # (Auto) 0.9 x10^3/uL (1.0-4.8) Monocytes # (Auto) 0.8 x10^3/uL (0.0-1.1) Eosinophils # (Auto) 0.0 x10^3/uL (0.0-0.7) Basophils # (Auto) 0.1 x10^3/uL (0.0-0.2) Segmented Neutrophils % 90 % (35-66) Band Neutrophils % 2 % (0-9) Lymphocytes % 3 % (24-48) Monocytes % 5 % (0-10) Platelet Estimate Adequate (ADEQUATE) Sodium Level 134 mmol/L (136-145) 146 mmol/L (136-145) Potassium Level 6.6 mmol/L (3.5-5.1) 3.7 mmol/L (3.5-5.1) Chloride Level 93 mmol/L (98-107) 115 mmol/L (98-107) Carbon Dioxide Level 17 mmol/L (21-32) 13 mmol/L (21-32) Anion Gap 24 (6-14) 18 (6-14) Blood Urea Nitrogen 54 mg/dL (8-26) 42 mg/dL (8-26) Creatinine 2.6 mg/dL (0.7-1.3) 1.8 mg/dL (0.7-1.3) Estimated GFR (Cockcroft-Gault) 28.9 44.1 BUN/Creatinine Ratio 21 (6-20) Glucose Level 978 mg/dL (70-99) 481 mg/dL (70-99) Calcium Level 10.3 mg/dL (8.5-10.1) 7.3 mg/dL (8.5-10.1) Total Bilirubin 0.5 mg/dL (0.2-1.0) Aspartate Amino Transf (AST/SGOT) 15 U/L (15-37) Alanine Aminotransferase (ALT/SGPT) 12 U/L (16-63) Alkaline Phosphatase 135 U/L (46-116) Troponin I Quantitative < 0.017 ng/mL (0.000-0.055) Total Protein 9.1 g/dL (6.4-8.2) Albumin 3.9 g/dL (3.4-5.0) Albumin/Globulin Ratio 0.8 (1.0-1.7) Lipase 473 U/L (73-393) Urine Collection Type U cath Urine Color Yellow Urine Clarity Cloudy Urine pH 5.0 Urine Specific [place] >=1.030 Urine Protein Negative mg/dL (NEG-TRACE) Urine Glucose (UA) >=1000 mg/dL (NEG) Urine Ketones (Stick) 15 mg/dL (NEG) Urine Blood Moderate (NEG) Urine Nitrite Negative (NEG) Urine Bilirubin Negative (NEG) Urine Urobilinogen Dipstick 0.2 mg/dL (0.2 mg/dL) Urine Leukocyte Esterase Negative (NEG) Urine RBC 1-2 /HPF (0-2) Urine WBC 0 /HPF (0-4) Urine Squamous Epithelial Cells Few /LPF Urine Amorphous Sediment Present /HPF Urine Bacteria 0 /HPF (0-FEW) Urine Mucus Slight /LPF Phosphorus Level 4.2 mg/dL (2.6-4.7) Magnesium Level 2.7 mg/dL (1.8-2.4) Test 11/30/18 02:19 11/30/18 03:27 11/30/18 04:28 11/30/18 05:33 Glucose (Fingerstick) 547 mg/dL (70-99) 374 mg/dL (70-99) 315 mg/dL (70-99) 258 mg/dL (70-99) Test 11/30/18 06:36 11/30/18 07:45 11/30/18 08:05 11/30/18 09:03 Glucose (Fingerstick) 139 mg/dL (70-99) 182 mg/dL (70-99) 171 mg/dL (70-99) White Blood Count 16.7 x10^3/uL (4.0-11.0) Red Blood Count 5.29 x10^6/uL (4.30-5.70) Hemoglobin 14.6 g/dL (13.0-17.5) Hematocrit 43.1 % (39.0-53.0) Mean Corpuscular Volume 81 fL (79-100) Mean Corpuscular Hemoglobin 28 pg (25-35) Mean Corpuscular Hemoglobin Concent 34 g/dL (31-37) Red Cell Distribution Width 14.4 % (11.5-14.5) Platelet Count 308 x10^3/uL (140-400) Neutrophils (%) (Auto) 85 % (31-73) Lymphocytes (%) (Auto) 8 % (24-48) Monocytes (%) (Auto) 5 % (0-9) Eosinophils (%) (Auto) 0 % (0-3) Basophils (%) (Auto) 1 % (0-3) Neutrophils # (Auto) 14.2 x10^3/uL (1.8-7.7) Lymphocytes # (Auto) 1.4 x10^3/uL (1.0-4.8) Monocytes # (Auto) 0.9 x10^3/uL (0.0-1.1) Eosinophils # (Auto) 0.0 x10^3/uL (0.0-0.7) Basophils # (Auto) 0.2 x10^3/uL (0.0-0.2) Prothrombin Time 13.9 SEC (11.7-14.0) Prothromb Time International Ratio 1.1 (0.8-1.1) Sodium Level 150 mmol/L (136-145) Potassium Level 4.2 mmol/L (3.5-5.1) Chloride Level 113 mmol/L (98-107) Carbon Dioxide Level 26 mmol/L (21-32) Anion Gap 11 (6-14) Blood Urea Nitrogen 42 mg/dL (8-26) Creatinine 1.8 mg/dL (0.7-1.3) Estimated GFR (Cockcroft-Gault) 44.1 BUN/Creatinine Ratio 23 (6-20) Glucose Level 155 mg/dL (70-99) Calcium Level 9.5 mg/dL (8.5-10.1) Phosphorus Level 3.0 mg/dL (2.6-4.7) Magnesium Level 3.0 mg/dL (1.8-2.4) Total Bilirubin 0.4 mg/dL (0.2-1.0) Aspartate Amino Transf (AST/SGOT) 18 U/L (15-37) Alanine Aminotransferase (ALT/SGPT) 12 U/L (16-63) Alkaline Phosphatase 105 U/L (46-116) Total Protein 7.7 g/dL (6.4-8.2) Albumin 3.3 g/dL (3.4-5.0) Albumin/Globulin Ratio 0.8 (1.0-1.7) Test 11/30/18 09:57 11/30/18 12:42 11/30/18 13:12 11/30/18 17:08 Glucose (Fingerstick) 117 mg/dL (70-99) 54 mg/dL (70-99) 116 mg/dL (70-99) 267 mg/dL (70-99) Test 11/30/18 21:12 12/01/18 03:45 12/01/18 07:02 12/01/18 09:39 Glucose (Fingerstick) 246 mg/dL (70-99) 377 mg/dL (70-99) 427 mg/dL (70-99) Prothrombin Time 14.3 SEC (11.7-14.0) Prothromb Time International Ratio 1.1 (0.8-1.1) Sodium Level 146 mmol/L (136-145) Potassium Level 4.4 mmol/L (3.5-5.1) Chloride Level 110 mmol/L (98-107) Carbon Dioxide Level 23 mmol/L (21-32) Anion Gap 13 (6-14) Blood Urea Nitrogen 33 mg/dL (8-26) Creatinine 1.6 mg/dL (0.7-1.3) Estimated GFR (Cockcroft-Gault) 50.6 Glucose Level 353 mg/dL (70-99) Calcium Level 9.2 mg/dL (8.5-10.1) Laboratory Tests Test 11/30/18 12:42 11/30/18 13:12 11/30/18 17:08 11/30/18 21:12 Glucose (Fingerstick) 54 mg/dL (70-99) 116 mg/dL (70-99) 267 mg/dL (70-99) 246 mg/dL (70-99) Test 12/01/18 03:45 12/01/18 07:02 12/01/18 09:39 Prothrombin Time 14.3 SEC (11.7-14.0) Prothromb Time International Ratio 1.1 (0.8-1.1) Sodium Level 146 mmol/L (136-145) Potassium Level 4.4 mmol/L (3.5-5.1) Chloride Level 110 mmol/L (98-107) Carbon Dioxide Level 23 mmol/L (21-32) Anion Gap 13 (6-14) Blood Urea Nitrogen 33 mg/dL (8-26) Creatinine 1.6 mg/dL (0.7-1.3) Estimated GFR (Cockcroft-Gault) 50.6 Glucose Level 353 mg/dL (70-99) Calcium Level 9.2 mg/dL (8.5-10.1) Glucose (Fingerstick) 377 mg/dL (70-99) 427 mg/dL (70-99) Medications Current Medications Sodium Chloride 1,000 ml @ 1,000 mls/hr 1X ONCE IV Last administered on 11/29/18at 22:00; Start 11/29/18 at 20:30; Stop 11/29/18 at 21:29; Status DC Sodium Chloride 500 ml @ 500 mls/hr 1X ONCE IV Last administered on 11/29/18at 23:12; Start 11/29/18 at 20:30; Stop 11/29/18 at 21:29; Status DC Lidocaine HCl (Glydo (Lidocaine) Jelly) 1 fiordaliza 1X ONCE MM Last administered on 11/29/18at 23:14; Start 11/29/18 at 22:45; Stop 11/29/18 at 22:46; Status DC Insulin Human Regular (HumuLIN R VIAL) 10 unit 1X ONCE IV Last administered on 11/29/18at 23:40; Start 11/29/18 at 23:15; Stop 11/29/18 at 23:16; Status DC Insulin Human Regular 150 ml @ 0 mls/hr 1X ONCE IV Last administered on 11/29/18at 23:55; Start 11/29/18 at 23:15; Stop 11/29/18 at 23:16; Status DC Sodium Bicarbonate (Sodium Bicarb Adult 8.4% Syr) 50 meq 1X ONCE IV Last administered on 11/29/18at 23:25; Start 11/29/18 at 23:15; Stop 11/29/18 at 23:16; Status DC Sodium Chloride 1,000 ml @ 1,000 mls/hr 1X ONCE IV Last administered on 11/29/18at 23:57; Start 11/29/18 at 23:15; Stop 11/30/18 at 00:14; Status DC Calcium Gluconate (Calcium Gluconate) 1,000 mg 1X ONCE IVP Last administered on 11/29/18at 23:15; Start 11/29/18 at 23:15; Stop 11/29/18 at 23:16; Status DC Sodium Chloride 1,000 ml @ 125 mls/hr Q8H IV Last administered on 11/30/18at 02:23; Start 11/29/18 at 23:30; Stop 11/30/18 at 02:51; Status DC Potassium Chloride/Water 100 ml @ 100 mls/hr Q1H IV Last administered on 11/30/18at 02:23; Start 11/30/18 at 02:00; Stop 11/30/18 at 02:59; Status DC Sodium Chloride 1,000 ml @ 250 mls/hr Q4H IV Last administered on 11/30/18at 02:55; Start 11/30/18 at 03:00; Stop 11/30/18 at 06:46; Status DC Insulin Human Regular 150 unit/ Sodium Chloride 151.5 ml @ 0 mls/hr CONT PRN PRN IV PER PROTOCOL; Start 11/30/18 at 02:45; Stop 11/30/18 at 13:47; Status DC Potassium Chloride/Water 100 ml @ 100 mls/hr PRN Q1HR PRN IV SEE COMMENTS; Start 11/30/18 at 02:45 Potassium Chloride/Water 100 ml @ 100 mls/hr PRN Q1HR PRN IV SEE COMMENTS; Start 11/30/18 at 02:45 Potassium Chloride/Water 100 ml @ 100 mls/hr PRN Q1HR PRN IV SEE COMMENTS; Start 11/30/18 at 02:45 Magnesium Sulfate 100 ml @ 25 mls/hr DAILY IV ; Start 11/30/18 at 09:00; Stop 12/03/18 at 08:59 Sodium Bicarbonate 50 meq/Sodium Chloride 1,050 ml @ 500 mls/hr Q2H6M PRN IV SEE COMMENTS; Start 11/30/18 at 02:37; Status UNV Sodium Phosphate 40 mmol/Sodium Chloride 513.3333 ml @ 83.3 mls/hr 1X PRN PRN IV SEE COMMENTS; Start 11/30/18 at 02:45 Sodium Phosphate 20 mmol/Dextrose 256.6667 ml @ 62.5 mls/hr 1X PRN PRN IV SEE COMMENTS; Start 11/30/18 at 02:45 Sodium Phosphate 10 mmol/Dextrose 253.3333 ml @ 62.5 mls/hr 1X PRN PRN IV SEE COMMENTS; Start 11/30/18 at 02:45 Potassium Chloride/Water 100 ml @ 100 mls/hr Q1H IV ; Start 11/30/18 at 03:00; Stop 11/30/18 at 03:05; Status DC Potassium Chloride/Water 100 ml @ 100 mls/hr 1X ONCE IV Last administered on 11/30/18at 03:35; Start 11/30/18 at 03:00; Stop 11/30/18 at 03:59; Status DC Potassium Chloride/Water 100 ml @ 100 mls/hr 1X ONCE IV ; Start 11/30/18 at 05:00; Stop 11/30/18 at 05:59; Status DC Potassium Chloride/Water 100 ml @ 100 mls/hr Q1H IV Last administered on 11/30/18at 05:09; Start 11/30/18 at 06:00; Stop 11/30/18 at 06:59; Status DC Potassium Chloride/Water 100 ml @ 100 mls/hr Q1H IV Last administered on 11/30/18at 05:55; Start 11/30/18 at 06:00; Stop 11/30/18 at 06:59; Status DC Dextrose/Sodium Chloride 1,000 ml @ 250 mls/hr Q4H IV Last administered on 11/30/18at 07:17; Start 11/30/18 at 07:00; Stop 11/30/18 at 08:52; Status DC Insulin Glargine (Lantus Syringe) 30 unit DAILY SQ ; Start 11/30/18 at 09:00; Stop 11/30/18 at 08:52; Status DC Insulin Human Lispro (HumaLOG) 18 units TIDWMEALS SQ ; Start 11/30/18 at 12:00; Stop 11/30/18 at 08:53; Status DC Insulin Human Lispro (HumaLOG) 0-9 UNITS TIDWMEALS SQ ; Start 11/30/18 at 12:00 Dextrose (Dextrose 50%-Water Syringe) 12.5 gm PRN Q15MIN PRN IV SEE COMMENTS Last administered on 11/30/18at 12:43; Start 11/30/18 at 08:45 Heparin Sodium (Porcine) (Heparin Sodium) 5,000 unit BID SQ Last administered on 12/01/18at 10:32; Start 11/30/18 at 09:00 Sodium Chloride 1,000 ml @ 100 mls/hr Q10H IV Last administered on 11/30/18at 09:00; Start 11/30/18 at 09:00; Stop 11/30/18 at 12:55; Status DC Insulin Glargine (Lantus Syringe) 22 unit DAILY SQ Last administered on 12/01/18at 08:29; Start 11/30/18 at 09:00 Insulin Human Lispro (HumaLOG) 15 units TIDWMEALS SQ Last administered on 12/01/18at 08:28; Start 11/30/18 at 09:00 Dextrose/Sodium Chloride 1,000 ml @ 100 mls/hr Q10H IV Last administered on 12/01/18at 01:13; Start 11/30/18 at 13:00; Stop 12/01/18 at 10:18; Status DC Active Scripts Active Reported Metformin Hcl Er (Metformin Hcl) 1,000 Mg Tab.er.24 1,000 Mg PO DAILYWBKFT Proair Hfa Inhaler (Albuterol Sulfate) 8.5 Gm Hfa.aer.ad 2 Puff INH PRN Q6HRS PRN Vitals/I & O Vital Sign - Last 24 Hours 11/30/18 11/30/18 11/30/18 11/30/18 12:00 16:00 20:29 20:50 Temp 98.0 98.1 98.5 98.0 98.1 98.5 Pulse 103 108 106 Resp 18 18 16 B/P (MAP) 118/71 (87) 99/58 (72) 90/62 (71) Pulse Ox 96 94 95 O2 Delivery Room Air Room Air Room Air Room Air 11/30/18 11/30/18 12/01/18 12/01/18 21:00 23:00 03:25 07:24 Temp 98.7 98.3 98.3 97.6 98.7 98.3 98.3 97.6 Pulse 102 105 92 97 Resp 18 18 20 18 B/P (MAP) 143/72 (95) 98/53 (68) 99/56 (70) 150/60 (90) Pulse Ox 97 96 96 97 O2 Delivery Room Air Room Air Room Air Room Air 12/01/18 08:00 O2 Delivery Room Air Intake and Output 11/30/18 11/30/18 12/01/18 15:00 23:00 07:00 Intake Total 200 ml Output Total 170 ml 140 ml 1200 ml Balance -170 ml -140 ml -1000 ml SAL VELEZ MD Dec 01, 2018 10:55
[2018-12-01] MEDS ORDERED: INSULIN LISPRO 300 UNITS/3 ML VIAL. SQ ONE (11:00)
[2018-12-01 11:16] VITALS: BP 141/55
--- NOTE | 2018-12-01 12:52 | NUR ---
The patient's repeat blood glucose after an hour was 427 mg/dL, D5 IVF was discontinued. Non administered 12 units, repeat glucose prelunch 319, Standing order of 15 units administered instead. We'll continue to monitor.
--- NOTE | 2018-12-01 13:00 | NUR ---
Tele monitor showed 11 beat VTAC at 1106, patient is alert, oriented x2, denies symptoms. BP 141/55 HR 103 RR 19 Temp 98.4F O2 sat at 94 % room air. Notified hospitalist at 1124, no new orders received.
--- NOTE | 2018-12-01 13:03 | PDOC ---
Infectious Disease Note Vital Sign Vital Signs Vital Signs Date Time Temp Pulse Resp B/P (MAP) Pulse Ox O2 Delivery O2 Flow Rate FiO2 12/01/18 11:16 98.4 65 18 141/55 (83) 94 Room Air 98.4 Labs Lab Laboratory Tests Test 11/30/18 13:12 11/30/18 17:08 11/30/18 21:12 12/01/18 03:45 Glucose (Fingerstick) 116 mg/dL (70-99) 267 mg/dL (70-99) 246 mg/dL (70-99) Prothrombin Time 14.3 SEC (11.7-14.0) Prothromb Time International Ratio 1.1 (0.8-1.1) Sodium Level 146 mmol/L (136-145) Potassium Level 4.4 mmol/L (3.5-5.1) Chloride Level 110 mmol/L (98-107) Carbon Dioxide Level 23 mmol/L (21-32) Anion Gap 13 (6-14) Blood Urea Nitrogen 33 mg/dL (8-26) Creatinine 1.6 mg/dL (0.7-1.3) Estimated GFR (Cockcroft-Gault) 50.6 Glucose Level 353 mg/dL (70-99) Calcium Level 9.2 mg/dL (8.5-10.1) Test 12/01/18 07:02 12/01/18 09:39 12/01/18 10:52 Glucose (Fingerstick) 377 mg/dL (70-99) 427 mg/dL (70-99) 319 mg/dL (70-99) Objective Assessment Leukocytosis -better - reactive process Hyperglycemia - off meds prior to admit pancreatitis DM INDY H/o lung CA Dementia Plan Plan of Care Currently doing well. Eating and asking when he can go home Admits to vomiting but given improvement no need for abx unless worsens D/w Nursing ID to sign off Thank you # [id number] TARA SOLORIO MD Dec 01, 2018 13:03
--- NOTE | 2018-12-01 13:03 | PDOC2 ---
GI CONSULT Reason For Consult: possible pancreatitis HPI: HPI: 78 y/o male admitted through ER on 11/29. Chart indicates family called EMS due to confusion, lethargy/weakness, and poor PO intake. Unable to obtain much history from him this morning. GI-sanchez, nurse says he ate breakfast without issue and has not complained of pain. Received in report that confusion is improving. CTA in 2015 noted small hiatal hernia and wall thickening of the esophagus possibly 2/2 reflux. PMH: PMH: per chart - lung cancer s/p right upper lobectomy and radiation, CAD, HTN, PE, DM, dementia, cataracts FH: Family History: Other (unable to obtain) Social History: Smoke: Quit ROS: Per HPI. Vitals: Vitals: Vital Signs Date Time Temp Pulse Resp B/P (MAP) Pulse Ox O2 Delivery O2 Flow Rate FiO2 12/01/18 11:16 98.4 65 18 141/55 (83) 94 Room Air 98.4 Labs: Labs: Laboratory Tests Test 11/30/18 13:12 11/30/18 17:08 11/30/18 21:12 12/01/18 03:45 Glucose (Fingerstick) 116 mg/dL (70-99) 267 mg/dL (70-99) 246 mg/dL (70-99) Prothrombin Time 14.3 SEC (11.7-14.0) Prothromb Time International Ratio 1.1 (0.8-1.1) Sodium Level 146 mmol/L (136-145) Potassium Level 4.4 mmol/L (3.5-5.1) Chloride Level 110 mmol/L (98-107) Carbon Dioxide Level 23 mmol/L (21-32) Anion Gap 13 (6-14) Blood Urea Nitrogen 33 mg/dL (8-26) Creatinine 1.6 mg/dL (0.7-1.3) Estimated GFR (Cockcroft-Gault) 50.6 Glucose Level 353 mg/dL (70-99) Calcium Level 9.2 mg/dL (8.5-10.1) Test 12/01/18 07:02 12/01/18 09:39 12/01/18 10:52 Glucose (Fingerstick) 377 mg/dL (70-99) 427 mg/dL (70-99) 319 mg/dL (70-99) Allergies: Coded Allergies: No Known Drug Allergies (Unverified , 07/01/13) Medications: Current Medications Medications (Trade) Dose Ordered Sig/Vance Route PRN Reason Start Time Stop Time Status Last Admin Dose Admin Dextrose/Sodium Chloride 1,000 ml @ 100 mls/hr Q10H IV 11/30/18 13:00 12/01/18 10:18 DC 12/01/18 01:13 Imaging: Imaging: CXR 11/29 Unchanged opacification with volume loss at the right upper lung with corresponding rightward tracheal/mediastinal deviation. No newly seen abnormality of the chest. CT A/P w/o contrast 11/29 Impression: 1. The study is degraded by motion artifact, particularly at the upper abdomen. 2. There may be a small amount of low attenuation along the pancreatic body and tail which could represent a manifestation of mild pancreatitis especially given provided history. Recommend correlation with lipase levels. No large pseudocyst is readily apparent, as queried. Area of low attenuation along the anterior/inferior aspect of the spleen may be artifactual from motion or could represent a small amount of fluid relating to pancreatitis. 3. Patchy areas of groundglass opacity at the dependent aspect of the right lower lung. The appearance is nonspecific but a component of mild aspiration is a consideration given location. 4. Calcific coronary artery disease as well as additional chronic findings as detailed above. PE: GEN: NAD - sitting up in chair, alone in room HEENT: atraumatic, PEERL LUNGS: room air HEART: RR - noted some tachycardia on review of vitals ABD: NABS, S/ND/NT EXTREM: no edema SKIN: no rashes NEURO/PSYCH: confused, calling for Ray, knows he's at [facility] A/P: A/P: AMS Hyperglycemia (h/o DM), leukocytosis, INDY (better), hyperkalemia (resolved), hypernatremia (better), hypermagnesemia Mildly elevated lipase, possible mild pancreatitis on CT -- No c/o abd pain, tolerating PO per nurse, and benign abdominal exam. Supportive care per GI, consider acid-block setter gypsum. HERMINIO KUHN Dec 01, 2018 13:03
--- NOTE | 2018-12-01 13:38 | CONS ---
DATE OF CONSULTATION: 12/01/2018 INFECTIOUS DISEASE CONSULTATION LOCATION: The patient's room is 556. REQUESTING PHYSICIAN: Dr. Saul. REASON FOR CONSULTATION: Questionable aspiration. HISTORY OF PRESENT ILLNESS: The patient is an 78-year-old gentleman, who has a history of pulmonary embolism, diabetes as well as squamous cell carcinoma of the right lung, for which apparently he had received some radiation therapy. According to the notes, he was brought to [facility] on 11/29/2018 secondary to lethargy. He has had dementia. He was brought in by EMS with altered mental status. On arrival, his white count of 18,000, sugar was 978 with a creatinine of 2.6. Additionally, his lipase was elevated at 473. He underwent a chest x-ray, which showed unchanged opacification, no newly seen abnormalities. A CT scan of the abdomen and pelvis was performed, showed he had small amount of low attenuation along the pancreatic body and tail, which could represent manifestation of mild pancreatitis. Also, patchy areas of ground glass opacity in the right lower lung. Since his admission, he has been afebrile. White blood cell count today is improved to 16.7. He has not received any antimicrobials. Currently, the patient is sitting in a chair. He denies any fevers or chills or sweats. He is eating a cheeseburger. He states he has no problem swallowing. Denies any cough. He states he did vomit prior to coming in, had no complications with passing his urine as far as he knows with Sena is in place. Denies any cramps, diarrhea or nausea. 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 He has received a chest radiation, carboplatin and Taxol. Also, again has a history of pulmonary embolism. He is diabetic, history of hyperlipidemia and hypertension. REVIEW OF SYSTEMS: Otherwise negative. ALLERGIES: No known drug allergies. SOCIAL HISTORY: Quit smoking in 2010. FAMILY HISTORY: Father had prostate cancer. CURRENT MEDICATIONS: Include heparin, insulin. Other meds are available and reviewed in the chart. PHYSICAL EXAMINATION: VITAL SIGNS: He is afebrile, temperature 98.4, pulse 65, respirations 18, blood pressure 141/55, and satting 94% on room air. CONSTITUTIONAL: He is in a chair. He is cooperative. He is eating. He is in no acute distress. HEENT: Pupils, status post cataract surgery. He has normal conjunctivae. NECK: Supple, no JVD. LUNGS: Clear to auscultation. HEART: S1, S2. ABDOMEN: Soft, no guarding, no rebound. GENITOURINARY: Has a Sena in place. EXTREMITIES: Without clubbing, cyanosis. He has some chronic changes of his lower extremities. SKIN: Otherwise, warm to touch without signs of rash. NEUROLOGIC: He is nonfocal, moves all extremities. PSYCHIATRIC: Affect is appropriate. LABORATORY DATA: White count 16.7, hemoglobin 14.6, platelets of 308, neutrophils of 85. Creatinine of 1.6, glucose of 319. LFTs were essentially normal. Lipase reviewed in history of present illness as well as Radiology. IMPRESSION: 1. Leukocytosis that is better, reactive process. 2. Hyperglycemia, off medications prior to admit. 3. Pancreatitis. 4. Diabetes. 5. Acute kidney injury. 6. History of lung cancer. 7. Dementia. Currently, he is doing well, he is eating and asking when he can go home. He admits to vomiting, but given improvement, no need for antibiotics unless he worsens. This was discussed with nursing. ID will sign off. Thank you for allowing me to participate in the patient's care. If you have any questions, please do not hesitate to contact me. TARA SOLORIO MD DR: WAYLON/sony JOB#: [id number] / [id number]
[2018-12-01 15:20] VITALS: BP 98/56
--- NOTE | 2018-12-01 16:27 | PDOC2 ---
PALLIATIVE CARE Palliative Care Note Palliative Care Consult requested by to address goals of care. Has stopped tx. for Lung Cancer? Medical Assessment per medical record; diabetic keto acidosis, acute renal failure, hyperkalemia, hypermag,, LEUKOCYTOSIS acute vasomotor nephropathy Dm2, poor control acute encephalopahty on chronic dementia Lung cancer, treated squamous cell to the right lung, now present on the left per Dr. Costa's last note ON CT , low attenuation along the pancreatic body and tail which could represent a manifestation of mild pancreatitis especially given provided history. Recommend correlation with lipase levels. No large pseudocyst is readily apparent, as queried. Area of low attenuation along the anterior/inferior aspect of the spleen may be artifactual from motion or could represent a small amount of fluid relating to pancreatitis. Patchy areas of groundglass opacity at the dependent aspect of the right lower lung. The appearance is nonspecific but a component of mild aspiration is a consideration given location. Calcific coronary artery disease as well as additional chronic findings as detailed above. weakness debility Patient alert./Confused. Sitting up in chair. Met with his 2 grandchildren Lillian and Mihai. and son . Reviewed above medial condition. Lillian not sure about when/why chemotherapy stopped for Lung Cancer. Grandson shared that patient was eating, walking, driving 3 weeks ago. For the last week he was declining--poor appetite, weak. Discussed options and the need for information about Lung Cancer. Discussed hospice if patient does not improve. Discussed Code Status; Family want to continue Full Care and Full Code status. Dr. Saul informed. Will Consult MARY Carter Dec 01, 2018 16:27
[2018-12-01 19:10] VITALS: BP 135/86
[2018-12-01 23:10] VITALS: BP 129/63
[2018-12-02 03:10] VITALS: BP 141/87
[2018-12-02 03:58] LABS: BASO # 0.1 x10^3/uL (0.0-0.2); BASO % 1 % (0-3); EOS # 0.1 x10^3/uL (0.0-0.7); EOS % 1 % (0-3); HEMATOCRIT 41.4 % (39.0-53.0); HEMOGLOBIN 13.9 g/dL (13.0-17.5); LYMPH # 1.5 x10^3/uL (1.0-4.8); LYMPH % 13 % (24-48); MEAN CORPUSCULAR HEMOGLOBIN 28 pg (25-35); MEAN CORPUSCULAR HGB CONC 34 g/dL (31-37); MEAN CORPUSCULAR VOLUME 83 fL (79-100); MONO # 0.6 x10^3/uL (0.0-1.1); MONO % 5 % (0-9); NEUT # 9.4 x10^3/uL (1.8-7.7); NEUT % 80 % (31-73); PLATELET COUNT 205 x10^3/uL (140-400); RED BLOOD COUNT 5.01 x10^6/uL (4.30-5.70); RED CELL DISTRIBUTION WIDTH 14.6 % (11.5-14.5); WHITE BLOOD COUNT 11.8 x10^3/uL (4.0-11.0)
[2018-12-02 04:29] LABS: ALBUMIN 2.8 g/dL (3.4-5.0); ALBUMIN/GLOBULIN RATIO 0.7 (1.0-1.7); CALCIUM 9.1 mg/dL (8.5-10.1); CREATININE 1.5 mg/dL (0.7-1.3); GFR 54.5; POTASSIUM 4.1 mmol/L (3.5-5.1); TOTAL BILIRUBIN 0.6 mg/dL (0.2-1.0); TOTAL PROTEIN 7.1 g/dL (6.4-8.2)
[2018-12-02 07:00] VITALS: BP 116/49
--- NOTE | 2018-12-02 07:52 | PDOC ---
PROGRESS NOTES History of Present Illness History of Present Illness VTE Prophylaxis Ordered VTE Prophylaxis Devices: Yes VTE Pharmacological Prophylaxi: No Assessment/Plan diabetic keto acidosis, acute renal failure, hyperkalemia, hypermag,, LEUKOCYTOSIS, reactive SIRS acute vasomotor nephropathy Dm2, poor control acute encephalopahty on chronic dementia Lung cancer, treated squamous cell to the right lung, now present on the left per Dr. Costa's last note ON CT , low attenuation along the pancreatic body and tail which could represent a manifestation of mild pancreatitis especially given provided history. Recommend correlation with lipase levels. No large pseudocyst is readily apparent, as queried. Area of low attenuation along the anterior/inferior aspect of the spleen may be artifactual from motion or could represent a small amount of fluid relating to pancreatitis. Patchy areas of groundglass opacity at the dependent aspect of the right lower lung. The appearance is nonspecific but a component of mild aspiration is a consideration given location. Calcific coronary artery disease as well as additional chronic findings as detailed above. weakness debility CONSULT PALLIATIVE CARE consult oncology GI FOLLOWING Leukocytosis -better - reactive process Hyperglycemia - off meds prior to admit pancreatitis 12/01 confused, thinks this is [address] [facility] 30 MIN PT EXAM, CHART REVIEW, > 50% OF TIME SPENT WITH EXAM, CHART REVIEW, PT CARE COORDINATION Vitals Vitals Vital Signs Date Time Temp Pulse Resp B/P (MAP) Pulse Ox O2 Delivery O2 Flow Rate FiO2 12/02/18 03:10 98.7 114 18 141/87 (105) 94 Room Air 98.7 Physical Exam General: Alert, Cooperative, No acute distress, Other (not oriented 2/4) Heart: Regular rate Lungs: Clear Abdomen: Normal bowel sounds, Soft Extremities: No clubbing, No cyanosis, No edema, Normal pulses Skin: No breakdown, No significant lesion Labs LABS Laboratory Tests Test 12/01/18 09:39 12/01/18 10:52 12/01/18 16:41 12/01/18 21:08 Glucose (Fingerstick) 427 mg/dL (70-99) 319 mg/dL (70-99) 184 mg/dL (70-99) 218 mg/dL (70-99) Test 12/02/18 03:10 12/02/18 07:26 White Blood Count 11.8 x10^3/uL (4.0-11.0) Red Blood Count 5.01 x10^6/uL (4.30-5.70) Hemoglobin 13.9 g/dL (13.0-17.5) Hematocrit 41.4 % (39.0-53.0) Mean Corpuscular Volume 83 fL (79-100) Mean Corpuscular Hemoglobin 28 pg (25-35) Mean Corpuscular Hemoglobin Concent 34 g/dL (31-37) Red Cell Distribution Width 14.6 % (11.5-14.5) Platelet Count 205 x10^3/uL (140-400) Neutrophils (%) (Auto) 80 % (31-73) Lymphocytes (%) (Auto) 13 % (24-48) Monocytes (%) (Auto) 5 % (0-9) Eosinophils (%) (Auto) 1 % (0-3) Basophils (%) (Auto) 1 % (0-3) Neutrophils # (Auto) 9.4 x10^3/uL (1.8-7.7) Lymphocytes # (Auto) 1.5 x10^3/uL (1.0-4.8) Monocytes # (Auto) 0.6 x10^3/uL (0.0-1.1) Eosinophils # (Auto) 0.1 x10^3/uL (0.0-0.7) Basophils # (Auto) 0.1 x10^3/uL (0.0-0.2) Sodium Level 145 mmol/L (136-145) Potassium Level 4.1 mmol/L (3.5-5.1) Chloride Level 109 mmol/L (98-107) Carbon Dioxide Level 22 mmol/L (21-32) Anion Gap 14 (6-14) Blood Urea Nitrogen 27 mg/dL (8-26) Creatinine 1.5 mg/dL (0.7-1.3) Estimated GFR (Cockcroft-Gault) 54.5 BUN/Creatinine Ratio 18 (6-20) Glucose Level 286 mg/dL (70-99) Calcium Level 9.1 mg/dL (8.5-10.1) Total Bilirubin 0.6 mg/dL (0.2-1.0) Aspartate Amino Transf (AST/SGOT) 16 U/L (15-37) Alanine Aminotransferase (ALT/SGPT) 13 U/L (16-63) Alkaline Phosphatase 91 U/L (46-116) Total Protein 7.1 g/dL (6.4-8.2) Albumin 2.8 g/dL (3.4-5.0) Albumin/Globulin Ratio 0.7 (1.0-1.7) Glucose (Fingerstick) 283 mg/dL (70-99) Comment Review of Relevant I have reviewed the following items arabella (where applicable) has been applied. Labs Laboratory Tests Test 11/30/18 08:05 11/30/18 09:03 11/30/18 09:57 11/30/18 12:42 White Blood Count 16.7 x10^3/uL (4.0-11.0) Red Blood Count 5.29 x10^6/uL (4.30-5.70) Hemoglobin 14.6 g/dL (13.0-17.5) Hematocrit 43.1 % (39.0-53.0) Mean Corpuscular Volume 81 fL (79-100) Mean Corpuscular Hemoglobin 28 pg (25-35) Mean Corpuscular Hemoglobin Concent 34 g/dL (31-37) Red Cell Distribution Width 14.4 % (11.5-14.5) Platelet Count 308 x10^3/uL (140-400) Neutrophils (%) (Auto) 85 % (31-73) Lymphocytes (%) (Auto) 8 % (24-48) Monocytes (%) (Auto) 5 % (0-9) Eosinophils (%) (Auto) 0 % (0-3) Basophils (%) (Auto) 1 % (0-3) Neutrophils # (Auto) 14.2 x10^3/uL (1.8-7.7) Lymphocytes # (Auto) 1.4 x10^3/uL (1.0-4.8) Monocytes # (Auto) 0.9 x10^3/uL (0.0-1.1) Eosinophils # (Auto) 0.0 x10^3/uL (0.0-0.7) Basophils # (Auto) 0.2 x10^3/uL (0.0-0.2) Prothrombin Time 13.9 SEC (11.7-14.0) Prothromb Time International Ratio 1.1 (0.8-1.1) Sodium Level 150 mmol/L (136-145) Potassium Level 4.2 mmol/L (3.5-5.1) Chloride Level 113 mmol/L (98-107) Carbon Dioxide Level 26 mmol/L (21-32) Anion Gap 11 (6-14) Blood Urea Nitrogen 42 mg/dL (8-26) Creatinine 1.8 mg/dL (0.7-1.3) Estimated GFR (Cockcroft-Gault) 44.1 BUN/Creatinine Ratio 23 (6-20) Glucose Level 155 mg/dL (70-99) Calcium Level 9.5 mg/dL (8.5-10.1) Phosphorus Level 3.0 mg/dL (2.6-4.7) Magnesium Level 3.0 mg/dL (1.8-2.4) Total Bilirubin 0.4 mg/dL (0.2-1.0) Aspartate Amino Transf (AST/SGOT) 18 U/L (15-37) Alanine Aminotransferase (ALT/SGPT) 12 U/L (16-63) Alkaline Phosphatase 105 U/L (46-116) Total Protein 7.7 g/dL (6.4-8.2) Albumin 3.3 g/dL (3.4-5.0) Albumin/Globulin Ratio 0.8 (1.0-1.7) Glucose (Fingerstick) 171 mg/dL (70-99) 117 mg/dL (70-99) 54 mg/dL (70-99) Test 11/30/18 13:12 11/30/18 17:08 11/30/18 21:12 12/01/18 03:45 Glucose (Fingerstick) 116 mg/dL (70-99) 267 mg/dL (70-99) 246 mg/dL (70-99) Prothrombin Time 14.3 SEC (11.7-14.0) Prothromb Time International Ratio 1.1 (0.8-1.1) Sodium Level 146 mmol/L (136-145) Potassium Level 4.4 mmol/L (3.5-5.1) Chloride Level 110 mmol/L (98-107) Carbon Dioxide Level 23 mmol/L (21-32) Anion Gap 13 (6-14) Blood Urea Nitrogen 33 mg/dL (8-26) Creatinine 1.6 mg/dL (0.7-1.3) Estimated GFR (Cockcroft-Gault) 50.6 Glucose Level 353 mg/dL (70-99) Calcium Level 9.2 mg/dL (8.5-10.1) Test 12/01/18 07:02 12/01/18 09:39 12/01/18 10:52 12/01/18 16:41 Glucose (Fingerstick) 377 mg/dL (70-99) 427 mg/dL (70-99) 319 mg/dL (70-99) 184 mg/dL (70-99) Test 12/01/18 21:08 12/02/18 03:10 12/02/18 07:26 Glucose (Fingerstick) 218 mg/dL (70-99) 283 mg/dL (70-99) White Blood Count 11.8 x10^3/uL (4.0-11.0) Red Blood Count 5.01 x10^6/uL (4.30-5.70) Hemoglobin 13.9 g/dL (13.0-17.5) Hematocrit 41.4 % (39.0-53.0) Mean Corpuscular Volume 83 fL (79-100) Mean Corpuscular Hemoglobin 28 pg (25-35) Mean Corpuscular Hemoglobin Concent 34 g/dL (31-37) Red Cell Distribution Width 14.6 % (11.5-14.5) Platelet Count 205 x10^3/uL (140-400) Neutrophils (%) (Auto) 80 % (31-73) Lymphocytes (%) (Auto) 13 % (24-48) Monocytes (%) (Auto) 5 % (0-9) Eosinophils (%) (Auto) 1 % (0-3) Basophils (%) (Auto) 1 % (0-3) Neutrophils # (Auto) 9.4 x10^3/uL (1.8-7.7) Lymphocytes # (Auto) 1.5 x10^3/uL (1.0-4.8) Monocytes # (Auto) 0.6 x10^3/uL (0.0-1.1) Eosinophils # (Auto) 0.1 x10^3/uL (0.0-0.7) Basophils # (Auto) 0.1 x10^3/uL (0.0-0.2) Sodium Level 145 mmol/L (136-145) Potassium Level 4.1 mmol/L (3.5-5.1) Chloride Level 109 mmol/L (98-107) Carbon Dioxide Level 22 mmol/L (21-32) Anion Gap 14 (6-14) Blood Urea Nitrogen 27 mg/dL (8-26) Creatinine 1.5 mg/dL (0.7-1.3) Estimated GFR (Cockcroft-Gault) 54.5 BUN/Creatinine Ratio 18 (6-20) Glucose Level 286 mg/dL (70-99) Calcium Level 9.1 mg/dL (8.5-10.1) Total Bilirubin 0.6 mg/dL (0.2-1.0) Aspartate Amino Transf (AST/SGOT) 16 U/L (15-37) Alanine Aminotransferase (ALT/SGPT) 13 U/L (16-63) Alkaline Phosphatase 91 U/L (46-116) Total Protein 7.1 g/dL (6.4-8.2) Albumin 2.8 g/dL (3.4-5.0) Albumin/Globulin Ratio 0.7 (1.0-1.7) Laboratory Tests Test 12/01/18 09:39 12/01/18 10:52 12/01/18 16:41 12/01/18 21:08 Glucose (Fingerstick) 427 mg/dL (70-99) 319 mg/dL (70-99) 184 mg/dL (70-99) 218 mg/dL (70-99) Test 12/02/18 03:10 12/02/18 07:26 White Blood Count 11.8 x10^3/uL (4.0-11.0) Red Blood Count 5.01 x10^6/uL (4.30-5.70) Hemoglobin 13.9 g/dL (13.0-17.5) Hematocrit 41.4 % (39.0-53.0) Mean Corpuscular Volume 83 fL (79-100) Mean Corpuscular Hemoglobin 28 pg (25-35) Mean Corpuscular Hemoglobin Concent 34 g/dL (31-37) Red Cell Distribution Width 14.6 % (11.5-14.5) Platelet Count 205 x10^3/uL (140-400) Neutrophils (%) (Auto) 80 % (31-73) Lymphocytes (%) (Auto) 13 % (24-48) Monocytes (%) (Auto) 5 % (0-9) Eosinophils (%) (Auto) 1 % (0-3) Basophils (%) (Auto) 1 % (0-3) Neutrophils # (Auto) 9.4 x10^3/uL (1.8-7.7) Lymphocytes # (Auto) 1.5 x10^3/uL (1.0-4.8) Monocytes # (Auto) 0.6 x10^3/uL (0.0-1.1) Eosinophils # (Auto) 0.1 x10^3/uL (0.0-0.7) Basophils # (Auto) 0.1 x10^3/uL (0.0-0.2) Sodium Level 145 mmol/L (136-145) Potassium Level 4.1 mmol/L (3.5-5.1) Chloride Level 109 mmol/L (98-107) Carbon Dioxide Level 22 mmol/L (21-32) Anion Gap 14 (6-14) Blood Urea Nitrogen 27 mg/dL (8-26) Creatinine 1.5 mg/dL (0.7-1.3) Estimated GFR (Cockcroft-Gault) 54.5 BUN/Creatinine Ratio 18 (6-20) Glucose Level 286 mg/dL (70-99) Calcium Level 9.1 mg/dL (8.5-10.1) Total Bilirubin 0.6 mg/dL (0.2-1.0) Aspartate Amino Transf (AST/SGOT) 16 U/L (15-37) Alanine Aminotransferase (ALT/SGPT) 13 U/L (16-63) Alkaline Phosphatase 91 U/L (46-116) Total Protein 7.1 g/dL (6.4-8.2) Albumin 2.8 g/dL (3.4-5.0) Albumin/Globulin Ratio 0.7 (1.0-1.7) Glucose (Fingerstick) 283 mg/dL (70-99) Medications Current Medications Sodium Chloride 1,000 ml @ 1,000 mls/hr 1X ONCE IV Last administered on 11/29/18at 22:00; Start 11/29/18 at 20:30; Stop 11/29/18 at 21:29; Status DC Sodium Chloride 500 ml @ 500 mls/hr 1X ONCE IV Last administered on 11/29/18 23:12; Start 11/29/18 at 20:30; Stop 11/29/18 at 21:29; Status DC Lidocaine HCl (Glydo (Lidocaine) Jelly) 1 fiordaliza 1X ONCE MM Last administered on 11/29/18 23:14; Start 11/29/18 at 22:45; Stop 11/29/18 at 22:46; Status DC Insulin Human Regular (HumuLIN R VIAL) 10 unit 1X ONCE IV Last administered on 11/29/18at 23:40; Start 11/29/18 at 23:15; Stop 11/29/18 at 23:16; Status DC Insulin Human Regular 150 ml @ 0 mls/hr 1X ONCE IV Last administered on 11/29/18 23:55; Start 11/29/18 at 23:15; Stop 11/29/18 at 23:16; Status DC Sodium Bicarbonate (Sodium Bicarb Adult 8.4% Syr) 50 meq 1X ONCE IV Last administered on 11/29/18at 23:25; Start 11/29/18 at 23:15; Stop 11/29/18 at 23:16; Status DC Sodium Chloride 1,000 ml @ 1,000 mls/hr 1X ONCE IV Last administered on 11/29/18at 23:57; Start 11/29/18 at 23:15; Stop 11/30/18 at 00:14; Status DC Calcium Gluconate (Calcium Gluconate) 1,000 mg 1X ONCE IVP Last administered on 11/29/18 23:15; Start 11/29/18 at 23:15; Stop 11/29/18 at 23:16; Status DC Sodium Chloride 1,000 ml @ 125 mls/hr Q8H IV Last administered on 11/30/18 02:23; Start 11/29/18 at 23:30; Stop 11/30/18 at 02:51; Status DC Potassium Chloride/Water 100 ml @ 100 mls/hr Q1H IV Last administered on 11/30/18at 02:23; Start 11/30/18 at 02:00; Stop 11/30/18 at 02:59; Status DC Sodium Chloride 1,000 ml @ 250 mls/hr Q4H IV Last administered on 11/30/18at 02:55; Start 11/30/18 at 03:00; Stop 11/30/18 at 06:46; Status DC Insulin Human Regular 150 unit/ Sodium Chloride 151.5 ml @ 0 mls/hr CONT PRN PRN IV PER PROTOCOL; Start 11/30/18 at 02:45; Stop 11/30/18 at 13:47; Status DC Potassium Chloride/Water 100 ml @ 100 mls/hr PRN Q1HR PRN IV SEE COMMENTS; Start 11/30/18 at 02:45 Potassium Chloride/Water 100 ml @ 100 mls/hr PRN Q1HR PRN IV SEE COMMENTS; Start 11/30/18 at 02:45 Potassium Chloride/Water 100 ml @ 100 mls/hr PRN Q1HR PRN IV SEE COMMENTS; St art 11/30/18 at 02:45 Magnesium Sulfate 100 ml @ 25 mls/hr DAILY IV ; Start 11/30/18 at 09:00; Stop 12/03/18 at 08:59 Sodium Bicarbonate 50 meq/Sodium Chloride 1,050 ml @ 500 mls/hr Q2H6M PRN IV SEE COMMENTS; Start 11/30/18 at 02:37; Status UNV Sodium Phosphate 40 mmol/Sodium Chloride 513.3333 ml @ 83.3 mls/hr 1X PRN PRN IV SEE COMMENTS; Start 11/30/18 at 02:45 Sodium Phosphate 20 mmol/Dextrose 256.6667 ml @ 62.5 mls/hr 1X PRN PRN IV SEE COMMENTS; Start 11/30/18 at 02:45 Sodium Phosphate 10 mmol/Dextrose 253.3333 ml @ 62.5 mls/hr 1X PRN PRN IV SEE COMMENTS; Start 11/30/18 at 02:45 Potassium Chloride/Water 100 ml @ 100 mls/hr Q1H IV ; Start 11/30/18 at 03:00; Stop 11/30/18 at 03:05; Status DC Potassium Chloride/Water 100 ml @ 100 mls/hr 1X ONCE IV Last administered on 11/30/18at 03:35; Start 11/30/18 at 03:00; Stop 11/30/18 at 03:59; Status DC Potassium Chloride/Water 100 ml @ 100 mls/hr 1X ONCE IV ; Start 11/30/18 at 05:00; Stop 11/30/18 at 05:59; Status DC Potassium Chloride/Water 100 ml @ 100 mls/hr Q1H IV Last administered on 11/30/18 05:09; Start 11/30/18 at 06:00; Stop 11/30/18 at 06:59; Status DC Potassium Chloride/Water 100 ml @ 100 mls/hr Q1H IV Last administered on 11/30/18at 05:55; Start 11/30/18 at 06:00; Stop 11/30/18 at 06:59; Status DC Dextrose/Sodium Chloride 1,000 ml @ 250 mls/hr Q4H IV Last administered on 11/30/18at 07:17; Start 11/30/18 at 07:00; Stop 11/30/18 at 08:52; Status DC Insulin Glargine (Lantus Syringe) 30 unit DAILY SQ ; Start 11/30/18 at 09:00; Stop 11/30/18 at 08:52; Status DC Insulin Human Lispro (HumaLOG) 18 units TIDWMEALS SQ ; Start 11/30/18 at 12:00; Stop 11/30/18 at 08:53; Status DC Insulin Human Lispro (HumaLOG) 0-9 UNITS TIDWMEALS SQ ; Start 11/30/18 at 12:00 Dextrose (Dextrose 50%-Water Syringe) 12.5 gm PRN Q15MIN PRN IV SEE COMMENTS Last administered on 11/30/18 12:43; Start 11/30/18 at 08:45 Heparin Sodium (Porcine) (Heparin Sodium) 5,000 unit BID SQ Last administered on 12/01/18 21:31; Start 11/30/18 at 09:00 Sodium Chloride 1,000 ml @ 100 mls/hr Q10H IV Last administered on 11/30/18at 09:00; Start 11/30/18 at 09:00; Stop 11/30/18 at 12:55; Status DC Insulin Glargine (Lantus Syringe) 22 unit DAILY SQ Last administered on 12/01/18 08:29; Start 11/30/18 at 09:00 Insulin Human Lispro (HumaLOG) 15 units TIDWMEALS SQ Last administered on 12/01/18 12:41; Start 11/30/18 at 09:00 Dextrose/Sodium Chloride 1,000 ml @ 100 mls/hr Q10H IV Last administered on 10/7/19at 01:13; Start 11/30/18 at 13:00; Stop 12/01/18 at 10:18; Status DC Insulin Human Lispro (HumaLOG) 12 units ONCE ONCE SQ ; Start 12/01/18 at 11:00; Stop 12/01/18 at 11:03; Status DC Active Scripts Active Reported Metformin Hcl Er (Metformin Hcl) 1,000 Mg Tab.er.24 1,000 Mg PO DAILYWBKFT Proair Hfa Inhaler (Albuterol Sulfate) 8.5 Gm Hfa.aer.ad 2 Puff INH PRN Q6HRS PRN Vitals/I & O Vital Sign - Last 24 Hours 12/01/18 12/01/18 12/01/18 12/01/18 08:00 11:16 15:20 19:10 Temp 98.4 98.4 99.4 98.4 98.4 99.4 Pulse 65 98 101 Resp 18 16 18 B/P (MAP) 141/55 (83) 98/56 (70) 135/86 (102) Pulse Ox 94 94 94 O2 Delivery Room Air Room Air Room Air Room Air 12/01/18 12/01/18 12/02/18 20:00 23:10 03:10 Temp 99.8 98.7 99.8 98.7 Pulse 97 114 Resp 18 18 B/P (MAP) 129/63 (85) 141/87 (105) Pulse Ox 96 94 O2 Delivery Room Air Room Air Room Air Intake and Output 12/01/18 12/01/18 12/02/18 15:00 23:00 07:00 Intake Total 200 ml 0 ml 450 ml Output Total 900 ml 650 ml 550 ml Balance -700 ml -650 ml -100 ml SAL VELEZ MD Dec 02, 2018 07:52
[2018-12-02] MEDS: INSULIN LISPRO 300 UNITS/3 ML VIAL. SQ SCH ×6 (08:00→17:42)
[2018-12-02] MEDS: HEPARIN for SUB-Q USE 5,000 UNIT/ML VIAL. SQ SCH ×2 (08:56→21:00)
[2018-12-02] MEDS: INSULIN GLARGINE SYRINGE. SQ SCH (08:57)
[2018-12-02] MEDS: MAGNESIUM SULFATE 4GM 100 ML IV SCH (08:58)
--- NOTE | 2018-12-02 09:30 | PDOC2 ---
CONSULT Date of Consult Date of Consult DATE: 12/02/18 TIME: : Reason for consultation: Lung cancer recurrent Consult: Hematology oncology, Dr. Rosa Stevens History of present illness: He is an 78-year-old man who was admitted with weakness, acute, associated with fatigue and decreased by mouth intake, with hyperglycemia (severe) with a blood glucose greater than 900, improved with current therapy, that was worsened due to noncompliance with medications related to insurance and financial issues, he does believe he will have insurance to pay for his diabetes medicines upon discharge. He has a history of PE in 2014 and was seen by Dr. Costa at that time and treated with Coumadin. 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 Lambert here in radiation oncology. Regarding the right lung cancer there were post treatment changes on PET scan in 04/2017 but a mild increased metabolically active pulmonary nodule at 1.2 cm in the left upper lobe with the SUV of 3.2. He had elected no treatment of the left lung cancer and had a CT abdomen and pelvis here with a patchy opacity in the right lower lung and a chest x-ray with unchanged volume loss at right upper lung with right tracheal and mediastinal deviation but he declines wanting a follow-up chest CT to assess the left lung cancer at this time. He was admitted with acute encephalopathy that has improved though he can't remember any details of his cancer and does not want CT scan or treatment at this time. Ms. Romero is involved though it does appear this is probably a slow-growing lung cancer and I do not know that prognosis meets hospice criteria at the moment as he looks quite well today, just doesn't want treatment. 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: Well-nourished and well-developed in no acute distress HEENT: mucous membranes moist, head normocephalic atraumatic Neck: Supple, no lymphadenopathy Lymph nodes: No palpable lymphadenopathy neck or axilla Lungs: Breathing comfortably on room air, no evidence of respiratory distress Heart: Regular rate and rhythm Abdomen: Soft, nontender, nondistended Extremities: No cyanosis or edema Skin: No obvious rashes or skin breakdown Neuro: Alert and answers questions though cannot remember any details of his medical history regarding cancer care Psych: Normal mood and affect Lab reviewed: White count 11.8, hemoglobin 13.9, platelets 205 INR 1.1 Glucose 286 Creatinine 1.5 Lipase 473 Rads reviewed: CT abdomen and pelvis November 29 showed mild pancreatitis? Patchy opacity right lower lung, coronary artery calcification Chest x-ray 29 November showed unchanged volume loss at right upper lung with right tracheal and mediastinal deviation PET/CT 23 May 2017 showed mild increased metabolic activity of a left upper lobe pulmonary nodule 1.2 cm with SUV of 3.2 as well as post treatment changes right upper lobe with mild increased metabolism with an SUV of 3.7 Case discussed with: Pt, MsHanna Romero, records reviewed in [facility], including labs and radiology, please see note for summary details Assessment and Plan: He is an 78-year-old man with a history of T3 N0 squamous cell carcinoma of the right lung treated with chemotherapy and radiotherapy in 2012, PE in 2014, and a left lung stage I cancer that's been on observation as of PET scan in April 2017, he has been observed by Dr. Lambert in the past, chemotherapy was through another office. He does not want a repeat CT scan or any treatment at this time for his slow-growing left lung cancer, I will however ask Dr. Lambert to see him as he has been followed by Dr. Lambert in the past. I do not think he meets hospice criteria as he looks quite well, he however denies any desire for treatment or further diagnostic workup for me. Right lung cancer: tx'd w/ chemoradiotherapy in 2012 Left lung cancer: Has been on observation early stage slow-growing in the past, will ask Dr. Lambert to weigh in Diabetic ketoacidosis: Much improved, hopefully he will be able to obtain his medications for compliance after discharge, defer to primary Encephalopathy: Appears much improved History of PE: He is on heparin prophylaxis Sightly elevated lipase with possible mild pancreatitis? Defer to others Disposition: After continued clinical improvement Thank you kindly for this consultation, and please do not hesitate to call with further questions. Past Medical History Cardiovascular: HTN, Hyperlipidemia GI: GERD ENT: No pertinent hx Renal/: No pertinent hx Family History Family History: Hypertension Social History Quit Current Medications Current Medications Current Medications Sodium Chloride 1,000 ml @ 1,000 mls/hr 1X ONCE IV Last administered on 11/29/18 22:00; Start 11/29/18 at 20:30; Stop 11/29/18 at 21:29; Status DC Sodium Chloride 500 ml @ 500 mls/hr 1X ONCE IV Last administered on 11/29/18 23:12; Start 11/29/18 at 20:30; Stop 11/29/18 at 21:29; Status DC Lidocaine HCl (Glydo (Lidocaine) Jelly) 1 fiordaliza 1X ONCE MM Last administered on 11/29/18at 23:14; Start 11/29/18 at 22:45; Stop 11/29/18 at 22:46; Status DC Insulin Human Regular (HumuLIN R VIAL) 10 unit 1X ONCE IV Last administered on 11/29/18 23:40; Start 11/29/18 at 23:15; Stop 11/29/18 at 23:16; Status DC Insulin Human Regular 150 ml @ 0 mls/hr 1X ONCE IV Last administered on 11/29/18at 23:55; Start 11/29/18 at 23:15; Stop 11/29/18 at 23:16; Status DC Sodium Bicarbonate (Sodium Bicarb Adult 8.4% Syr) 50 meq 1X ONCE IV Last administered on 11/29/18 23:25; Start 11/29/18 at 23:15; Stop 11/29/18 at 23:16; Status DC Sodium Chloride 1,000 ml @ 1,000 mls/hr 1X ONCE IV Last administered on 11/29/18 23:57; Start 11/29/18 at 23:15; Stop 11/30/18 at 00:14; Status DC Calcium Gluconate (Calcium Gluconate) 1,000 mg 1X ONCE IVP Last administered on 11/29/18at 23:15; Start 11/29/18 at 23:15; Stop 11/29/18 at 23:16; Status DC Sodium Chloride 1,000 ml @ 125 mls/hr Q8H IV Last administered on 11/30/18at 02:23; Start 11/29/18 at 23:30; Stop 11/30/18 at 02:51; Status DC Potassium Chloride/Water 100 ml @ 100 mls/hr Q1H IV Last administered on 11/30/18at 02:23; Start 11/30/18 at 02:00; Stop 11/30/18 at 02:59; Status DC Sodium Chloride 1,000 ml @ 250 mls/hr Q4H IV Last administered on 11/30/18at 02:55; Start 11/30/18 at 03:00; Stop 11/30/18 at 06:46; Status DC Insulin Human Regular 150 unit/ Sodium Chloride 151.5 ml @ 0 mls/hr CONT PRN PRN IV PER PROTOCOL; Start 11/30/18 at 02:45; Stop 11/30/18 at 13:47; Status DC Potassium Chloride/Water 100 ml @ 100 mls/hr PRN Q1HR PRN IV SEE COMMENTS; Start 11/30/18 at 02:45 Potassium Chloride/Water 100 ml @ 100 mls/hr PRN Q1HR PRN IV SEE COMMENTS; Start 11/30/18 at 02:45 Potassium Chloride/Water 100 ml @ 100 mls/hr PRN Q1HR PRN IV SEE COMMENTS; Start 11/30/18 at 02:45 Magnesium Sulfate 100 ml @ 25 mls/hr DAILY IV ; Start 11/30/18 at 09:00; Stop 12/03/18 at 08:59 Sodium Bicarbonate 50 meq/Sodium Chloride 1,050 ml @ 500 mls/hr Q2H6M PRN IV SEE COMMENTS; Start 11/30/18 at 02:37; Status UNV Sodium Phosphate 40 mmol/Sodium Chloride 513.3333 ml @ 83.3 mls/hr 1X PRN PRN IV SEE COMMENTS; Start 11/30/18 at 02:45 Sodium Phosphate 20 mmol/Dextrose 256.6667 ml @ 62.5 mls/hr 1X PRN PRN IV SEE COMMENTS; Start 11/30/18 at 02:45 Sodium Phosphate 10 mmol/Dextrose 253.3333 ml @ 62.5 mls/hr 1X PRN PRN IV SEE COMMENTS; Start 11/30/18 at 02:45 Potassium Chloride/Water 100 ml @ 100 mls/hr Q1H IV ; Start 11/30/18 at 03:00; Stop 11/30/18 at 03:05; Status DC Potassium Chloride/Water 100 ml @ 100 mls/hr 1X ONCE IV Last administered on 11/30/18at 03:35; Start 11/30/18 at 03:00; Stop 11/30/18 at 03:59; Status DC Potassium Chloride/Water 100 ml @ 100 mls/hr 1X ONCE IV ; Start 11/30/18 at 05:00; Stop 11/30/18 at 05:59; Status DC Potassium Chloride/Water 100 ml @ 100 mls/hr Q1H IV Last administered on 11/30/18at 05:09; Start 11/30/18 at 06:00; Stop 11/30/18 at 06:59; Status DC Potassium Chloride/Water 100 ml @ 100 mls/hr Q1H IV Last administered on 11/30/18at 05:55; Start 11/30/18 at 06:00; Stop 11/30/18 at 06:59; Status DC Dextrose/Sodium Chloride 1,000 ml @ 250 mls/hr Q4H IV Last administered on 11/30/18at 07:17; Start 11/30/18 at 07:00; Stop 11/30/18 at 08:52; Status DC Insulin Glargine (Lantus Syringe) 30 unit DAILY SQ ; Start 11/30/18 at 09:00; Stop 11/30/18 at 08:52; Status DC Insulin Human Lispro (HumaLOG) 18 units TIDWMEALS SQ ; Start 11/30/18 at 12:00; Stop 11/30/18 at 08:53; Status DC Insulin Human Lispro (HumaLOG) 0-9 UNITS TIDWMEALS SQ Last administered on 12/02/18at 08:46; Start 11/30/18 at 12:00 Dextrose (Dextrose 50%-Water Syringe) 12.5 gm PRN Q15MIN PRN IV SEE COMMENTS Last administered on 11/30/18at 12:43; Start 11/30/18 at 08:45 Heparin Sodium (Porcine) (Heparin Sodium) 5,000 unit BID SQ Last administered on 12/02/18at 08:56; Start 11/30/18 at 09:00 Sodium Chloride 1,000 ml @ 100 mls/hr Q10H IV Last administered on 11/30/18at 09:00; Start 11/30/18 at 09:00; Stop 11/30/18 at 12:55; Status DC Insulin Glargine (Lantus Syringe) 22 unit DAILY SQ Last administered on 12/02/18at 08:57; Start 11/30/18 at 09:00 Insulin Human Lispro (HumaLOG) 15 units TIDWMEALS SQ Last administered on 12/01/18at 12:41; Start 11/30/18 at 09:00 Dextrose/Sodium Chloride 1,000 ml @ 100 mls/hr Q10H IV Last administered on 12/01/18at 01:13; Start 11/30/18 at 13:00; Stop 12/01/18 at 10:18; Status DC Insulin Human Lispro (HumaLOG) 12 units ONCE ONCE SQ ; Start 12/01/18 at 11:00; Stop 12/01/18 at 11:03; Status DC Active Scripts Active Reported Metformin Hcl Er (Metformin Hcl) 1,000 Mg Tab.er.24 1,000 Mg PO DAILYWBKFT Proair Hfa Inhaler (Albuterol Sulfate) 8.5 Gm Hfa.aer.ad 2 Puff INH PRN Q6HRS PRN Allergies Allergies: Coded Allergies: No Known Drug Allergies (Unverified , 07/01/13) Vitals VITALS Vital Signs Date Time Temp Pulse Resp B/P (MAP) Pulse Ox O2 Delivery O2 Flow Rate FiO2 12/02/18 07:00 97.8 107 18 116/49 (71) 96 Room Air 97.8 Labs Labs Laboratory Tests Test 11/30/18 09:57 11/30/18 12:42 11/30/18 13:12 11/30/18 17:08 Glucose (Fingerstick) 117 mg/dL (70-99) 54 mg/dL (70-99) 116 mg/dL (70-99) 267 mg/dL (70-99) Test 11/30/18 21:12 12/01/18 03:45 12/01/18 07:02 12/01/18 09:39 Glucose (Fingerstick) 246 mg/dL (70-99) 377 mg/dL (70-99) 427 mg/dL (70-99) Prothrombin Time 14.3 SEC (11.7-14.0) Prothromb Time International Ratio 1.1 (0.8-1.1) Sodium Level 146 mmol/L (136-145) Potassium Level 4.4 mmol/L (3.5-5.1) Chloride Level 110 mmol/L (98-107) Carbon Dioxide Level 23 mmol/L (21-32) Anion Gap 13 (6-14) Blood Urea Nitrogen 33 mg/dL (8-26) Creatinine 1.6 mg/dL (0.7-1.3) Estimated GFR (Cockcroft-Gault) 50.6 Glucose Level 353 mg/dL (70-99) Calcium Level 9.2 mg/dL (8.5-10.1) Test 12/01/18 10:52 12/01/18 16:41 12/01/18 21:08 12/02/18 03:10 Glucose (Fingerstick) 319 mg/dL (70-99) 184 mg/dL (70-99) 218 mg/dL (70-99) White Blood Count 11.8 x10^3/uL (4.0-11.0) Red Blood Count 5.01 x10^6/uL (4.30-5.70) Hemoglobin 13.9 g/dL (13.0-17.5) Hematocrit 41.4 % (39.0-53.0) Mean Corpuscular Volume 83 fL (79-100) Mean Corpuscular Hemoglobin 28 pg (25-35) Mean Corpuscular Hemoglobin Concent 34 g/dL (31-37) Red Cell Distribution Width 14.6 % (11.5-14.5) Platelet Count 205 x10^3/uL (140-400) Neutrophils (%) (Auto) 80 % (31-73) Lymphocytes (%) (Auto) 13 % (24-48) Monocytes (%) (Auto) 5 % (0-9) Eosinophils (%) (Auto) 1 % (0-3) Basophils (%) (Auto) 1 % (0-3) Neutrophils # (Auto) 9.4 x10^3/uL (1.8-7.7) Lymphocytes # (Auto) 1.5 x10^3/uL (1.0-4.8) Monocytes # (Auto) 0.6 x10^3/uL (0.0-1.1) Eosinophils # (Auto) 0.1 x10^3/uL (0.0-0.7) Basophils # (Auto) 0.1 x10^3/uL (0.0-0.2) Sodium Level 145 mmol/L (136-145) Potassium Level 4.1 mmol/L (3.5-5.1) Chloride Level 109 mmol/L (98-107) Carbon Dioxide Level 22 mmol/L (21-32) Anion Gap 14 (6-14) Blood Urea Nitrogen 27 mg/dL (8-26) Creatinine 1.5 mg/dL (0.7-1.3) Estimated GFR (Cockcroft-Gault) 54.5 BUN/Creatinine Ratio 18 (6-20) Glucose Level 286 mg/dL (70-99) Calcium Level 9.1 mg/dL (8.5-10.1) Total Bilirubin 0.6 mg/dL (0.2-1.0) Aspartate Amino Transf (AST/SGOT) 16 U/L (15-37) Alanine Aminotransferase (ALT/SGPT) 13 U/L (16-63) Alkaline Phosphatase 91 U/L (46-116) Total Protein 7.1 g/dL (6.4-8.2) Albumin 2.8 g/dL (3.4-5.0) Albumin/Globulin Ratio 0.7 (1.0-1.7) Test 12/02/18 07:26 Glucose (Fingerstick) 283 mg/dL (70-99) Laboratory Tests Test 12/01/18 09:39 12/01/18 10:52 12/01/18 16:41 12/01/18 21:08 Glucose (Fingerstick) 427 mg/dL (70-99) 319 mg/dL (70-99) 184 mg/dL (70-99) 218 mg/dL (70-99) Test 12/02/18 03:10 12/02/18 07:26 White Blood Count 11.8 x10^3/uL (4.0-11.0) Red Blood Count 5.01 x10^6/uL (4.30-5.70) Hemoglobin 13.9 g/dL (13.0-17.5) Hematocrit 41.4 % (39.0-53.0) Mean Corpuscular Volume 83 fL (79-100) Mean Corpuscular Hemoglobin 28 pg (25-35) Mean Corpuscular Hemoglobin Concent 34 g/dL (31-37) Red Cell Distribution Width 14.6 % (11.5-14.5) Platelet Count 205 x10^3/uL (140-400) Neutrophils (%) (Auto) 80 % (31-73) Lymphocytes (%) (Auto) 13 % (24-48) Monocytes (%) (Auto) 5 % (0-9) Eosinophils (%) (Auto) 1 % (0-3) Basophils (%) (Auto) 1 % (0-3) Neutrophils # (Auto) 9.4 x10^3/uL (1.8-7.7) Lymphocytes # (Auto) 1.5 x10^3/uL (1.0-4.8) Monocytes # (Auto) 0.6 x10^3/uL (0.0-1.1) Eosinophils # (Auto) 0.1 x10^3/uL (0.0-0.7) Basophils # (Auto) 0.1 x10^3/uL (0.0-0.2) Sodium Level 145 mmol/L (136-145) Potassium Level 4.1 mmol/L (3.5-5.1) Chloride Level 109 mmol/L (98-107) Carbon Dioxide Level 22 mmol/L (21-32) Anion Gap 14 (6-14) Blood Urea Nitrogen 27 mg/dL (8-26) Creatinine 1.5 mg/dL (0.7-1.3) Estimated GFR (Cockcroft-Gault) 54.5 BUN/Creatinine Ratio 18 (6-20) Glucose Level 286 mg/dL (70-99) Calcium Level 9.1 mg/dL (8.5-10.1) Total Bilirubin 0.6 mg/dL (0.2-1.0) Aspartate Amino Transf (AST/SGOT) 16 U/L (15-37) Alanine Aminotransferase (ALT/SGPT) 13 U/L (16-63) Alkaline Phosphatase 91 U/L (46-116) Total Protein 7.1 g/dL (6.4-8.2) Albumin 2.8 g/dL (3.4-5.0) Albumin/Globulin Ratio 0.7 (1.0-1.7) Glucose (Fingerstick) 283 mg/dL (70-99) ROSA STEVENS MD Dec 02, 2018 09:30
--- NOTE | 2018-12-02 10:18 | PDOC2 ---
CARDIAC CONSULT DATE OF CONSULT Date of Consult DATE: 12/02/18 TIME: 10:04 REASON FOR CONSULT Reason for Consult: 10 beat VT REFERRING PHYSICIAN Referring Physician: Greyson SOURCE Source: Chart review, Patient HISTORY OF PRESENT ILLNESS HISTORY OF PRESENT ILLNESS This is an 78 yo male admitted for weakness and increasing confusion. He has not been eating well and has not been drinking well per chart review. He is a p oor historian as he has dementia. He is known for lung CA with no known hx of CAD. Consult is for arrhythmia for VTE. Upon admission he has been noted with DKA and INDY. He has hx of lung CA and received radiation and chemotherapy before. Presently he is confused but pleasant. He said he knows why he is here but could not tell me why and could not tell me where he is at and what yr. No chest pain or palpitations. No prior passing out. Noted with NSVT yesterday while sitting up around noon otherwise no other prior episodes except that he has been having PAT. PAST MEDICAL HISTORY Cardiovascular: HTN, Hyperlipidemia Pulmonary: Pulmonary embolus CENTRAL NERVOUS SYSTEM: Dementia Heme/Onc: Cancer (lung) Musculoskeletal: Osteoarthritis Endocrine: Diabetes (2) PAST SURGICAL HISTORY Past Surgical History: Cataract Removal FAMILY HISTORY Family History noncontributory SOCIAL HISTORY Smoke: No ALCOHOL: none Drugs: None ALLERGIES ALLERGIES: Coded Allergies: No Known Drug Allergies (Unverified , 07/01/13) ROS Review of System unreliable, confuse with underlying dementia PHYSICAL EXAM General: Alert, Cooperative, No acute distress HEENT: Atraumatic, Mucous membr. moist/pink Lungs: Other (basilar crackles) Heart: Regular rate (SR/ST), Other (distant heart sounds) Abdomen: Soft, No tenderness Extremities: No cyanosis, No edema Skin: No breakdown, No significant lesion Neuro: Normal speech, Sensation intact Psych/Mental Status: Other (confused) MUSCULOSKELETAL: Osteoarthritic changes both hands VITALS/I&O VITALS/I&O: Vital Signs Date Time Temp Pulse Resp B/P (MAP) Pulse Ox O2 Delivery O2 Flow Rate FiO2 12/02/18 07:00 97.8 107 18 116/49 (71) 96 Room Air 97.8 I & O 12/01/18 12/01/18 12/02/18 14:59 22:59 06:59 Intake Total 200 ml 0 ml 450 ml Output Total 900 ml 650 ml 550 ml Balance -700 ml -650 ml -100 ml LABS Lab: Laboratory Tests Test 12/01/18 10:52 12/01/18 16:41 12/01/18 21:08 12/02/18 03:10 Glucose (Fingerstick) 319 mg/dL (70-99) H 184 mg/dL (70-99) H 218 mg/dL (70-99) H White Blood Count 11.8 x10^3/uL (4.0-11.0) H Red Blood Count 5.01 x10^6/uL (4.30-5.70) Hemoglobin 13.9 g/dL (13.0-17.5) Hematocrit 41.4 % (39.0-53.0) Mean Corpuscular Volume 83 fL (79-100) Mean Corpuscular Hemoglobin 28 pg (25-35) Mean Corpuscular Hemoglobin Concent 34 g/dL (31-37) Red Cell Distribution Width 14.6 % (11.5-14.5) H Platelet Count 205 x10^3/uL (140-400) Neutrophils (%) (Auto) 80 % (31-73) H Lymphocytes (%) (Auto) 13 % (24-48) L Monocytes (%) (Auto) 5 % (0-9) Eosinophils (%) (Auto) 1 % (0-3) Basophils (%) (Auto) 1 % (0-3) Neutrophils # (Auto) 9.4 x10^3/uL (1.8-7.7) H Lymphocytes # (Auto) 1.5 x10^3/uL (1.0-4.8) Monocytes # (Auto) 0.6 x10^3/uL (0.0-1.1) Eosinophils # (Auto) 0.1 x10^3/uL (0.0-0.7) Basophils # (Auto) 0.1 x10^3/uL (0.0-0.2) Sodium Level 145 mmol/L (136-145) Potassium Level 4.1 mmol/L (3.5-5.1) Chloride Level 109 mmol/L (98-107) H Carbon Dioxide Level 22 mmol/L (21-32) Anion Gap 14 (6-14) Blood Urea Nitrogen 27 mg/dL (8-26) H Creatinine 1.5 mg/dL (0.7-1.3) H Estimated GFR (Cockcroft-Gault) 54.5 BUN/Creatinine Ratio 18 (6-20) Glucose Level 286 mg/dL (70-99) H Calcium Level 9.1 mg/dL (8.5-10.1) Total Bilirubin 0.6 mg/dL (0.2-1.0) Aspartate Amino Transferase (AST) 16 U/L (15-37) Alanine Aminotransferase (ALT) 13 U/L (16-63) L Alkaline Phosphatase 91 U/L (46-116) Total Protein 7.1 g/dL (6.4-8.2) Albumin 2.8 g/dL (3.4-5.0) L Albumin/Globulin Ratio 0.7 (1.0-1.7) L Test 12/02/18 07:26 Glucose (Fingerstick) 283 mg/dL (70-99) H Laboratory Tests 12/02/18 03:10 Laboratory Tests 12/02/18 03:10 ECHOCARDIOGRAM ECHOCARDIOGRAM <Conclusion> The left ventricle is normal size. Left ventricle systolic function is low normal. The Ejection Fraction is estimated at 50%. There is no significant aortic valvular stenosis. Doppler and Color Flow revealed no significant aortic regurgitation. Doppler and Color Flow revealed mild mitral regurgitation. Doppler and Color Flow revealed mild tricuspid regurgitation. The PA pressure was estimated at 35 mmHg. There is no evidence of significant pericardial effusion. DATE: 06/26/141823 ASSESSMENT/PLAN ASSESSMENT/PLAN 1. Arrhythmia: x1 NSVT otherwise SR/ST with PAT, potentiated by metabolic issues and fever. 2. DKA: improved 3. Mild acute pancreatitis: possibly from DKA 4. INDY/hyperkalemia: improved. 5. HLP 6. HTN: controlled 7. Fever/leukocytosis with possible aspiration 8. Hx of idiopathic PE: unclear if pt remains on anticoagulation therapy, will defer to PCP 9. Metabolic encephalopathy with underlying dementia 10. NSCLC: SCC. Hemonc following. 11. Coronary calcifications per CT Recommendations 1. Will need to ascertain goals of care, currently continue with medical therapy and conservative measures cardiac sanchez. 2. CXR, BNP, TSH, will check TG 3. If BP is adequate then will start on low dose metoprolol. ASA. 4. Speech eval. DENNISE GALEANA LABEL DESIGNER Dec 02, 2018 10:18
[2018-12-02 10:41] LABS: CHOLESTEROL/HDL RATIO 2.8
--- NOTE | 2018-12-02 11:21 | PDOC ---
Subjective: Subjective: "I'm gettin out of here." Says he already ate. Objective: Objective: D/w nurse - still confused, no c/o pain. Vital Signs: Vital Signs Date Time Temp Pulse Resp B/P (MAP) Pulse Ox O2 Delivery O2 Flow Rate FiO2 12/02/18 08:00 Room Air 12/02/18 07:00 97.8 107 18 116/49 (71) 96 97.8 Labs: Laboratory Tests Test 12/01/18 16:41 12/01/18 21:08 12/02/18 03:10 12/02/18 07:26 Glucose (Fingerstick) 184 mg/dL 218 mg/dL 283 mg/dL White Blood Count 11.8 x10^3/uL Red Blood Count 5.01 x10^6/uL Hemoglobin 13.9 g/dL Hematocrit 41.4 % Mean Corpuscular Volume 83 fL Mean Corpuscular Hemoglobin 28 pg Mean Corpuscular Hemoglobin Concent 34 g/dL Red Cell Distribution Width 14.6 % Platelet Count 205 x10^3/uL Neutrophils (%) (Auto) 80 % Lymphocytes (%) (Auto) 13 % Monocytes (%) (Auto) 5 % Eosinophils (%) (Auto) 1 % Basophils (%) (Auto) 1 % Neutrophils # (Auto) 9.4 x10^3/uL Lymphocytes # (Auto) 1.5 x10^3/uL Monocytes # (Auto) 0.6 x10^3/uL Eosinophils # (Auto) 0.1 x10^3/uL Basophils # (Auto) 0.1 x10^3/uL Sodium Level 145 mmol/L Potassium Level 4.1 mmol/L Chloride Level 109 mmol/L Carbon Dioxide Level 22 mmol/L Anion Gap 14 Blood Urea Nitrogen 27 mg/dL Creatinine 1.5 mg/dL Estimated GFR (Cockcroft-Gault) 54.5 BUN/Creatinine Ratio 18 Glucose Level 286 mg/dL Calcium Level 9.1 mg/dL Magnesium Level 2.0 mg/dL Total Bilirubin 0.6 mg/dL Aspartate Amino Transf (AST/SGOT) 16 U/L Alanine Aminotransferase (ALT/SGPT) 13 U/L Alkaline Phosphatase 91 U/L CL-Aqe-S-Type Natriuretic Peptide 317 pg/mL Total Protein 7.1 g/dL Albumin 2.8 g/dL Albumin/Globulin Ratio 0.7 Triglycerides Level 130 mg/dL Cholesterol Level 139 mg/dL LDL Cholesterol, Calculated 63 mg/dL VLDL Cholesterol, Calculated 26 mg/dL Non-HDL Cholesterol Calculated 89 mg/dL HDL Cholesterol 50 mg/dL Cholesterol/HDL Ratio 2.8 Thyroid Stimulating Hormone (TSH) 1.936 uIU/mL Imaging: CXR 12/02 pending PE: GEN: NAD - breakfast tray untouched except for orange juice LUNGS: CTAB HEART: RRR ABD: S/ND/NT NEURO/PSYCH: confused A/P: AMS, hyperglycemia (h/o DM) Mildly elevated lipase, possible mild pancreatitis on CT - ate w/o issue yesterday, no c/o abd pain -- Encouraged PO. HERMINIO KUHN Dec 02, 2018 11:21
[2018-12-02 11:32] VITALS: BP 91/54
[2018-12-02] MEDS: ASPIRIN ENTERIC COATED 81 MG TABLET.DR. PO SCH (13:13)
--- NOTE | 2018-12-02 13:25 | NUR ---
SW following pt. Spoke with PC and family would like to continue FC and full aggressive treatment. SW left a voice mail to pt's daughter, Lillian, phone: [phone] requesting a call back. SW attempted to reach pt's grandson, Mihai but was unable to leave VM. Discussed with RN. Will continue to follow.
[2018-12-02 14:24] VITALS: BP 132/61
[2018-12-02] MEDS: METOPROLOL TART IMMED RELEASE 25 MG TABLET. PO SCH ×2 (15:27→20:53)
--- NOTE | 2018-12-02 15:57 | PDOC ---
Provider Note Provider Note 78 yo man with hx of st IIB squamous cell carcinoma of right lung s/ 54 Gy chest radiation and chemo 03/2012. 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 He declined f/u or further evaluation when seen at that time and not seen since. Now recovered from diabetic ketoacidosis and feeling well ready and interested in DC. No chest sxs. No interest in further chest CT or f/u of the suspected lung cancer seen in 04/2017. Chest Xray reveals stable post treatment changes in right chest no other findings noted. Discussed in general with patient. He only desires fu with PMD at this time. ROSEMARY MELARA MD Dec 02, 2018 15:57
--- NOTE | 2018-12-02 15:58 | PDOC2 ---
PALLIATIVE CARE Palliative Care Note Palliative Care Patient alert./confused. Sitting up in chair visiting with daughter. Consult with Dr. Lambert pending Discussed Code status with Lillian. She requests DNR/DNI. Understands without this attempt he likely would . Outside the Hospital DNR/DNI form signed. Discussed discharge plan. PT/OT recommends SNU for strengthening. Lillian would like facility close to this area. Stressed importance of proper diet and control of blood sugar with meds to Lillian. Plan: DNR/DNI SNU for strengthening Continue to monitor and tx. elevated BS Rad. Onc pending. MARY MOTA Dec 02, 2018 15:58
--- NOTE | 2018-12-02 16:41 | RAD ---
CHEST AP ONLY 12/02/2018 10:30 AM INDICATION: CHF COMPARISON: 11/29/2018 TECHNIQUE: Portable frontal view of the chest is provided. FINDINGS: The cardiomediastinal silhouette is similar in appearance. There is volume loss in the right lung, similar to the prior examination. There is atelectasis of the right upper lobe. Left lung is clear. No significant interval change since prior examination. There are no significant pleural effusions. There is no pulmonary vascular congestion. No pneumothorax. IMPRESSION: Aeration of the lungs appears similar to the prior examination. Right upper lobe atelectasis appears similar. Recommend follow-up to resolution. Electronically signed by: Effie Carver MD (12/02/2018 4:39 PM) [facility]
--- NOTE | 2018-12-02 16:41 | NUR ---
SW following pt. SPoke with pt's daughter about SNU options, insurance coverage and medicare star ratings. Pt's does not have a preference and would like pt to be closer in this area. Pt's daughter agreeable with an eval at [facility]. Plan 1. SW phoned and faxed referral to [facility]. Acceptance pending. 2. SW left a brochure with pt's RN about PP. 3. Will continue to follow to assist with dc plan.
[2018-12-02 19:34] VITALS: BP 120/56
[2018-12-03 03:49] VITALS: BP 134/74
[2018-12-03 07:30] VITALS: BP 162/75
[2018-12-03] MEDS: METOPROLOL TART IMMED RELEASE 25 MG TABLET. PO SCH (09:07)
[2018-12-03] MEDS: ASPIRIN ENTERIC COATED 81 MG TABLET.DR. PO SCH (09:07)
--- NOTE | 2018-12-03 09:10 | NUR ---
SS following up with discharge planning. Pt accepted at [facility], ; fax [phone]. Pt's RN notified. SS will await discharge orders for [facility] and will proceed accordingly with discharge planning.
[2018-12-03] MEDS: INSULIN LISPRO 300 UNITS/3 ML VIAL. SQ SCH ×4 (09:13→12:27)
[2018-12-03] MEDS: INSULIN GLARGINE SYRINGE. SQ SCH (09:15)
[2018-12-03] MEDS: HEPARIN for SUB-Q USE 5,000 UNIT/ML VIAL. SQ SCH (09:15)
--- NOTE | 2018-12-03 09:34 | PDOC ---
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 Lambert in the past, chemotherapy was through another office back in 2012. He does not want further w/u or tx at this time and is asx from his clinical L lung ca, slow growing. Right lung cancer: tx'd w/ chemoradiotherapy in 2012 Left lung cancer: f/u per primary per pt desire, not needing hospice at this time due to lack of sx, apprec Dr Lambert's assistance Diabetic ketoacidosis: Much improved, per primary Encephalopathy: Appears much improved History of PE: He is on heparin prophylaxis Sightly elevated lipase with possible mild pancreatitis? Defer to others Disposition: After continued clinical improvement likely to prov place thank you kindly and please do not hesitate to call w/ further ?s. OBJECTIVE Vital Signs Vital Signs Date Time Temp Pulse Resp B/P (MAP) Pulse Ox O2 Delivery O2 Flow Rate FiO2 12/03/18 09:07 109 162/75 12/03/18 07:30 97.8 109 17 162/75 (104) 97 Room Air 97.8 12/03/18 03:49 98.7 104 18 134/74 (94) 97 Room Air 98.7 12/02/18 20:53 68 123/78 12/02/18 20:05 Room Air 12/02/18 19:34 98.9 108 20 120/56 (77) 96 Room Air 98.9 12/02/18 15:27 109 132/61 12/02/18 14:24 97.4 109 16 132/61 (84) 96 Room Air 97.4 12/02/18 11:32 97.4 113 18 91/54 (66) 96 Room Air 97.4 I & O Intake and Output 12/03/18 07:00 Intake Total 1450 ml Output Total 2550 ml Balance -1100 ml Intake Oral 1450 ml Output Urine Total 2550 ml # Voids 3 COMMENT Lab Laboratory Tests Test 12/02/18 11:23 12/02/18 16:58 12/02/18 21:35 12/03/18 08:47 Glucose (Fingerstick) 310 mg/dL (70-99) 261 mg/dL (70-99) 189 mg/dL (70-99) 290 mg/dL (70-99) ROSA PALMER MD Dec 03, 2018 09:34
--- NOTE | 2018-12-03 10:10 | PDOC ---
PROGRESS NOTES History of Present Illness History of Present Illness VTE Prophylaxis Ordered VTE Prophylaxis Devices: Yes VTE Pharmacological Prophylaxi: No Assessment/Plan diabetic keto acidosis, acute renal failure, hyperkalemia, hypermag,, LEUKOCYTOSIS, reactive SIRS acute vasomotor nephropathy Dm2, poor control acute encephalopahty on chronic dementia Lung cancer, treated squamous cell to the right lung, now present on the left per Dr. Costa's last note ON CT , low attenuation along the pancreatic body and tail which could represent a manifestation of mild pancreatitis especially given provided history. Recommend correlation with lipase levels. No large pseudocyst is readily apparent, as queried. Area of low attenuation along the anterior/inferior aspect of the spleen may be artifactual from motion or could represent a small amount of fluid relating to pancreatitis. Patchy areas of groundglass opacity at the dependent aspect of the right lower lung. The appearance is nonspecific but a component of mild aspiration is a consideration given location. Calcific coronary artery disease as well as additional chronic weakness// debility, SEVERE PALLIATIVE CARE, PT DECLINES ADDITIONAL TREATMENT OF CANCER consult oncology REVIEWED GI FOLLOWING Leukocytosis -better - reactive process Hyperglycemia - off meds prior to admit pancreatitis 12/01 confused, thinks this is 1983 and he is at [facility] FOCUS ON COMFORT MEASURES 37 MIN PT EXAM, CHART REVIEW, > 50% OF TIME SPENT WITH EXAM, CHART REVIEW, PT CARE COORDINATION Vitals Vitals Vital Signs Date Time Temp Pulse Resp B/P (MAP) Pulse Ox O2 Delivery O2 Flow Rate FiO2 12/03/18 09:07 109 162/75 12/03/18 08:00 Room Air 12/03/18 07:30 97.8 17 97 97.8 Physical Exam General: Alert, Cooperative, No acute distress Heart: Regular rate (SR/ST), Other (distant heart sounds) Lungs: Clear Abdomen: Normal bowel sounds, Soft, No tenderness Extremities: No clubbing, No cyanosis, No edema, Normal pulses Skin: No breakdown, No significant lesion Labs LABS Laboratory Tests Test 12/02/18 11:23 12/02/18 16:58 12/02/18 21:35 12/03/18 08:47 Glucose (Fingerstick) 310 mg/dL (70-99) 261 mg/dL (70-99) 189 mg/dL (70-99) 290 mg/dL (70-99) Comment Review of Relevant I have reviewed the following items arabella (where applicable) has been applied. Labs Laboratory Tests Test 12/01/18 10:52 12/01/18 16:41 12/01/18 21:08 12/02/18 03:10 Glucose (Fingerstick) 319 mg/dL (70-99) 184 mg/dL (70-99) 218 mg/dL (70-99) White Blood Count 11.8 x10^3/uL (4.0-11.0) Red Blood Count 5.01 x10^6/uL (4.30-5.70) Hemoglobin 13.9 g/dL (13.0-17.5) Hematocrit 41.4 % (39.0-53.0) Mean Corpuscular Volume 83 fL (79-100) Mean Corpuscular Hemoglobin 28 pg (25-35) Mean Corpuscular Hemoglobin Concent 34 g/dL (31-37) Red Cell Distribution Width 14.6 % (11.5-14.5) Platelet Count 205 x10^3/uL (140-400) Neutrophils (%) (Auto) 80 % (31-73) Lymphocytes (%) (Auto) 13 % (24-48) Monocytes (%) (Auto) 5 % (0-9) Eosinophils (%) (Auto) 1 % (0-3) Basophils (%) (Auto) 1 % (0-3) Neutrophils # (Auto) 9.4 x10^3/uL (1.8-7.7) Lymphocytes # (Auto) 1.5 x10^3/uL (1.0-4.8) Monocytes # (Auto) 0.6 x10^3/uL (0.0-1.1) Eosinophils # (Auto) 0.1 x10^3/uL (0.0-0.7) Basophils # (Auto) 0.1 x10^3/uL (0.0-0.2) Sodium Level 145 mmol/L (136-145) Potassium Level 4.1 mmol/L (3.5-5.1) Chloride Level 109 mmol/L (98-107) Carbon Dioxide Level 22 mmol/L (21-32) Anion Gap 14 (6-14) Blood Urea Nitrogen 27 mg/dL (8-26) Creatinine 1.5 mg/dL (0.7-1.3) Estimated GFR (Cockcroft-Gault) 54.5 BUN/Creatinine Ratio 18 (6-20) Glucose Level 286 mg/dL (70-99) Calcium Level 9.1 mg/dL (8.5-10.1) Magnesium Level 2.0 mg/dL (1.8-2.4) Total Bilirubin 0.6 mg/dL (0.2-1.0) Aspartate Amino Transf (AST/SGOT) 16 U/L (15-37) Alanine Aminotransferase (ALT/SGPT) 13 U/L (16-63) Alkaline Phosphatase 91 U/L (46-116) SM-Mkb-C-Type Natriuretic Peptide 317 pg/mL (0-449) Total Protein 7.1 g/dL (6.4-8.2) Albumin 2.8 g/dL (3.4-5.0) Albumin/Globulin Ratio 0.7 (1.0-1.7) Triglycerides Level 130 mg/dL (0-150) Cholesterol Level 139 mg/dL (0-200) LDL Cholesterol, Calculated 63 mg/dL (0-100) VLDL Cholesterol, Calculated 26 mg/dL (0-40) Non-HDL Cholesterol Calculated 89 mg/dL (0-129) HDL Cholesterol 50 mg/dL (40-60) Cholesterol/HDL Ratio 2.8 Thyroid Stimulating Hormone (TSH) 1.936 uIU/mL (0.358-3.74) Test 12/02/18 07:26 12/02/18 11:23 12/02/18 16:58 12/02/18 21:35 Glucose (Fingerstick) 283 mg/dL (70-99) 310 mg/dL (70-99) 261 mg/dL (70-99) 189 mg/dL (70-99) Test 12/03/18 08:47 Glucose (Fingerstick) 290 mg/dL (70-99) Laboratory Tests Test 12/02/18 11:23 12/02/18 16:58 12/02/18 21:35 12/03/18 08:47 Glucose (Fingerstick) 310 mg/dL (70-99) 261 mg/dL (70-99) 189 mg/dL (70-99) 290 mg/dL (70-99) Medications Current Medications Sodium Chloride 1,000 ml @ 1,000 mls/hr 1X ONCE IV Last administered on 11/29/18at 22:00; Start 11/29/18 at 20:30; Stop 11/29/18 at 21:29; Status DC Sodium Chloride 500 ml @ 500 mls/hr 1X ONCE IV Last administered on 11/29/18at 23:12; Start 11/29/18 at 20:30; Stop 11/29/18 at 21:29; Status DC Lidocaine HCl (Glydo (Lidocaine) Jelly) 1 fiordaliza 1X ONCE MM Last administered on 11/29/18at 23:14; Start 11/29/18 at 22:45; Stop 11/29/18 at 22:46; Status DC Insulin Human Regular (HumuLIN R VIAL) 10 unit 1X ONCE IV Last administered on 11/29/18at 23:40; Start 11/29/18 at 23:15; Stop 11/29/18 at 23:16; Status DC Insulin Human Regular 150 ml @ 0 mls/hr 1X ONCE IV Last administered on 11/29/18at 23:55; Start 11/29/18 at 23:15; Stop 11/29/18 at 23:16; Status DC Sodium Bicarbonate (Sodium Bicarb Adult 8.4% Syr) 50 meq 1X ONCE IV Last administered on 11/29/18at 23:25; Start 11/29/18 at 23:15; Stop 11/29/18 at 23:16; Status DC Sodium Chloride 1,000 ml @ 1,000 mls/hr 1X ONCE IV Last administered on 11/29/18at 23:57; Start 11/29/18 at 23:15; Stop 11/30/18 at 00:14; Status DC Calcium Gluconate (Calcium Gluconate) 1,000 mg 1X ONCE IVP Last administered on 11/29/18at 23:15; Start 11/29/18 at 23:15; Stop 11/29/18 at 23:16; Status DC Sodium Chloride 1,000 ml @ 125 mls/hr Q8H IV Last administered on 11/30/18at 02:23; Start 11/29/18 at 23:30; Stop 11/30/18 at 02:51; Status DC Potassium Chloride/Water 100 ml @ 100 mls/hr Q1H IV Last administered on 11/30/18at 02:23; Start 11/30/18 at 02:00; Stop 11/30/18 at 02:59; Status DC Sodium Chloride 1,000 ml @ 250 mls/hr Q4H IV Last administered on 11/30/18at 02:55; Start 11/30/18 at 03:00; Stop 11/30/18 at 06:46; Status DC Insulin Human Regular 150 unit/ Sodium Chloride 151.5 ml @ 0 mls/hr CONT PRN PRN IV PER PROTOCOL; Start 11/30/18 at 02:45; Stop 11/30/18 at 13:47; Status DC Potassium Chloride/Water 100 ml @ 100 mls/hr PRN Q1HR PRN IV SEE COMMENTS; Start 11/30/18 at 02:45 Potassium Chloride/Water 100 ml @ 100 mls/hr PRN Q1HR PRN IV SEE COMMENTS; Start 11/30/18 at 02:45 Potassium Chloride/Water 100 ml @ 100 mls/hr PRN Q1HR PRN IV SEE COMMENTS; Start 11/30/18 at 02:45 Magnesium Sulfate 100 ml @ 25 mls/hr DAILY IV ; Start 11/30/18 at 09:00; Stop 12/03/18 at 08:59; Status DC Sodium Bicarbonate 50 meq/Sodium Chloride 1,050 ml @ 500 mls/hr Q2H6M PRN IV SEE COMMENTS; Start 11/30/18 at 02:37; Status UNV Sodium Phosphate 40 mmol/Sodium Chloride 513.3333 ml @ 83.3 mls/hr 1X PRN PRN IV SEE COMMENTS; Start 11/30/18 at 02:45 Sodium Phosphate 20 mmol/Dextrose 256.6667 ml @ 62.5 mls/hr 1X PRN PRN IV SEE COMMENTS; Start 11/30/18 at 02:45 Sodium Phosphate 10 mmol/Dextrose 253.3333 ml @ 62.5 mls/hr 1X PRN PRN IV SEE COMMENTS; Start 11/30/18 at 02:45 Potassium Chloride/Water 100 ml @ 100 mls/hr Q1H IV ; Start 11/30/18 at 03:00; Stop 11/30/18 at 03:05; Status DC Potassium Chloride/Water 100 ml @ 100 mls/hr 1X ONCE IV Last administered on 11/30/18at 03:35; Start 11/30/18 at 03:00; Stop 11/30/18 at 03:59; Status DC Potassium Chloride/Water 100 ml @ 100 mls/hr 1X ONCE IV ; Start 11/30/18 at 05:00; Stop 11/30/18 at 05:59; Status DC Potassium Chloride/Water 100 ml @ 100 mls/hr Q1H IV Last administered on 11/30/18at 05:09; Start 11/30/18 at 06:00; Stop 11/30/18 at 06:59; Status DC Potassium Chloride/Water 100 ml @ 100 mls/hr Q1H IV Last administered on 11/30/18at 05:55; Start 11/30/18 at 06:00; Stop 11/30/18 at 06:59; Status DC Dextrose/Sodium Chloride 1,000 ml @ 250 mls/hr Q4H IV Last administered on 11/30/18at 07:17; Start 11/30/18 at 07:00; Stop 11/30/18 at 08:52; Status DC Insulin Glargine (Lantus Syringe) 30 unit DAILY SQ ; Start 11/30/18 at 09:00; Stop 11/30/18 at 08:52; Status DC Insulin Human Lispro (HumaLOG) 18 units TIDWMEALS SQ ; Start 11/30/18 at 12:00; Stop 11/30/18 at 08:53; Status DC Insulin Human Lispro (HumaLOG) 0-9 UNITS TIDWMEALS SQ Last administered on 12/03/18at 09:14; Start 11/30/18 at 12:00 Dextrose (Dextrose 50%-Water Syringe) 12.5 gm PRN Q15MIN PRN IV SEE COMMENTS Last administered on 11/30/18at 12:43; Start 11/30/18 at 08:45 Heparin Sodium (Porcine) (Heparin Sodium) 5,000 unit BID SQ Last administered on 12/03/18at 09:15; Start 11/30/18 at 09:00 Sodium Chloride 1,000 ml @ 100 mls/hr Q10H IV Last administered on 11/30/18at 09:00; Start 11/30/18 at 09:00; Stop 11/30/18 at 12:55; Status DC Insulin Glargine (Lantus Syringe) 22 unit DAILY SQ Last administered on 12/03/18at 09:15; Start 11/30/18 at 09:00 Insulin Human Lispro (HumaLOG) 15 units TIDWMEALS SQ Last administered on 12/03/18at 09:13; Start 11/30/18 at 09:00 Dextrose/Sodium Chloride 1,000 ml @ 100 mls/hr Q10H IV Last administered on 12/01/18at 01:13; Start 11/30/18 at 13:00; Stop 12/01/18 at 10:18; Status DC Insulin Human Lispro (HumaLOG) 12 units ONCE ONCE SQ ; Start 12/01/18 at 11:00; Stop 12/01/18 at 11:03; Status DC Aspirin (Ecotrin) 81 mg DAILYWBKFT PO Last administered on 12/03/18at 09:07; Start 12/02/18 at 11:00 Metoprolol Tartrate (Lopressor) 12.5 mg BID PO Last administered on 12/03/18at 09:07; Start 12/02/18 at 11:00 Active Scripts Active Reported Metformin Hcl Er (Metformin Hcl) 1,000 Mg Tab.er.24 1,000 Mg PO DAILYWBKFT Proair Hfa Inhaler (Albuterol Sulfate) 8.5 Gm Hfa.aer.ad 2 Puff INH PRN Q6HRS PRN Vitals/I & O Vital Sign - Last 24 Hours 12/02/18 12/02/18 12/02/18 12/02/18 11:32 14:24 15:27 19:34 Temp 97.4 97.4 98.9 97.4 97.4 98.9 Pulse 113 109 109 108 Resp 18 16 20 B/P (MAP) 91/54 (66) 132/61 (84) 132/61 120/56 (77) Pulse Ox 96 96 96 O2 Delivery Room Air Room Air Room Air 12/02/18 12/02/18 12/03/18 12/03/18 20:05 20:53 03:49 07:30 Temp 98.7 97.8 98.7 97.8 Pulse 68 104 109 Resp 18 17 B/P (MAP) 123/78 134/74 (94) 162/75 (104) Pulse Ox 97 97 O2 Delivery Room Air Room Air Room Air 12/03/18 12/03/18 08:00 09:07 Pulse 109 B/P (MAP) 162/75 O2 Delivery Room Air Intake and Output 10/10/1312/02/18 12/03/18 14:59 22:59 06:59 Intake Total 1350 ml 0 ml 100 ml Output Total 2000 ml 550 ml Balance -650 ml -550 ml 100 ml SAL VELEZ MD Dec 03, 2018 10:10
--- NOTE | 2018-12-03 10:50 | CARD ---
MR#: [id number] Date of Study: 12/03/2018 Ordering Physician: DENNISE GALEANA, Referring Physician: DENNISE GALEANA Tech: Lucrecia Jacobs PARMINDER APPROVED REPORT EXAM: Two-dimensional and M-mode echocardiogram with Doppler and color Doppler. Other Information Quality : Technically LimitedHR: 105bpm Rhythm : TachycardiaTechnically limited study due to uncooperative, confused patient. INDICATION Hyperglycemia 2D DIMENSIONS RVDd1.9 (2.9-3.5cm)IVSd1.1 (0.7-1.1cm) Aortic Root(2D)2.5 (2.0-3.7cm)LVDd4.1 (3.9-5.9cm) LVOT Diameter2.1 (1.8-2.4cm)PWd0.9 (0.7-1.1cm) LVDs3.2 (2.5-4.0cm)FS (%) 21.4 % SV32.0 mlLVEF(%)43.7 (>50%) Aortic Valve AoV Peak Nestor.133.0cm/sAoV VTI16.9cm AO Peak GR.7.1mmHgLVOT VTI 9.49cm AO Mean GR.4mmHg Mitral Valve MV E Xhdzgqyz30.3cm/sMV DECEL [id number] MV A Cbyqvesk51.6cm/sE/A Ratio0.8 MV A [id number] LEFT VENTRICLE The left ventricle is normal size. There is normal left ventricular wall thickness. The left ventricu lar systolic function is low normal. The Ejection Fraction is 50%. There is normal LV segmental wall motion. Transmitral Doppler flow pattern is Grade I-abnormal relaxation pattern. RIGHT VENTRICLE The right ventricle is normal size. There is normal right ventricular wall thickness. The right ventr icular systolic function is normal. ATRIA The left atrium size is normal. The right atrium size is normal. The interatrial septum is intact wit h no evidence for an atrial septal defect or patent foramen ovale as noted on 2-D or Doppler imaging. AORTIC VALVE The aortic valve is not well visualized. Doppler and Color Flow revealed no significant aortic regurg itation. There is no significant aortic valvular stenosis. MITRAL VALVE The mitral valve is normal in structure and function. There is no evidence of mitral valve prolapse. There is no mitral valve stenosis. Doppler and Color Flow revealed no mitral valve regurgitation note d. TRICUSPID VALVE The tricuspid valve is normal in structure and function. Doppler and Color Flow revealed trace tricus pid regurgitation. There is no tricuspid valve prolapse or vegetation. There is no tricuspid valve st enosis. PULMONIC VALVE The pulmonic valve is not well visualized. GREAT VESSELS The aortic root is normal in size. The ascending aorta is normal in size. The IVC is normal in size a nd collapses >50% with inspiration. PERICARDIAL EFFUSION There is no evidence of significant pericardial effusion. Critical Notification Critical Value: No <Conclusion> Technically difficult study. The left ventricular systolic function is low normal. The Ejection Fraction is 50%. There is normal LV segmental wall motion. Transmitral Doppler flow pattern is Grade I-abnormal relaxation pattern. Trace tricuspid regurgitation. There is no evidence of significant pericardial effusion. Signed by : Sundar Iverson, Electronically Approved : 12/03/2018 10:50:10
[2018-12-03 11:28] VITALS: BP 112/60
[2018-12-03] MEDS ORDERED: INSULIN GLARGINE SYRINGE. SQ SCH (11:30)
--- NOTE | 2018-12-03 11:30 | PDOC ---
Subjective: Subjective: Says he ate a little, denies abd pain. "I'm doin good." Objective: Vital Signs: Vital Signs Date Time Temp Pulse Resp B/P (MAP) Pulse Ox O2 Delivery O2 Flow Rate FiO2 12/03/18 09:07 109 162/75 12/03/18 08:00 Room Air 12/03/18 07:30 97.8 17 97 97.8 Labs: Laboratory Tests Test 12/02/18 16:58 12/02/18 21:35 12/03/18 08:47 Glucose (Fingerstick) 261 mg/dL 189 mg/dL 290 mg/dL Imaging: CXR 12/02 IMPRESSION: Aeration of the lungs appears similar to the prior examination. Right upper lobe atelectasis appears similar. Recommend follow-up to resolution. PE: GEN: NAD LUNGS: CTAB HEART: tachycardic ABD: S/ND/NT NEURO/PSYCH: forgetful A/P: Hyperglycemia, encephalopathy - better Mildly elevated lipase, possible mild pancreatitis on CT - has been asymptomatic -- Stable from GI standpoint. HERMINIO KUHN Dec 03, 2018 11:29
--- NOTE | 2018-12-03 11:53 | PDOC ---
CARDIO Progress Notes Date and Time Date of Service 12/03/2018 Time of Evaluation 1130 Subjective Subjective: No Chest Pain, No shortness of breath, No Palpitations, Other (denies any pain) Vitals Vitals Vital Signs Date Time Temp Pulse Resp B/P (MAP) Pulse Ox O2 Delivery O2 Flow Rate FiO2 12/03/18 11:28 98.0 83 15 112/60 (77) 97 Room Air 98.0 Weight Weight [ ] Input and Output Intake and Output Intake and Output 12/03/18 07:00 Intake Total 1450 ml Output Total 2550 ml Balance -1100 ml Intake Oral 1450 ml Output Urine Total 2550 ml # Voids 3 Laboratory Labs Laboratory Tests Test 12/02/18 16:58 12/02/18 21:35 12/03/18 08:47 Glucose (Fingerstick) 261 mg/dL (70-99) 189 mg/dL (70-99) 290 mg/dL (70-99) Physical Exam HEENT: Neck Supple W Full Motion Chest: Symmetric LUNGS: Clear to Auscultation Heart: S1S2, RRR Abdomen: Soft N/T Extremities: No Calf Tenderness Neurology: alert, follow commands, other (oriented to self and place) Assessment Assessment 1. Arrhythmia: x1 NSVT otherwise SR/ST with PAT, potentiated by metabolic issues and fever 2. DKA: improved 3. Mild acute pancreatitis: possibly from DKA 4. INDY/hyperkalemia: improved. 5. HLP 6. HTN: controlled 7. Fever/leukocytosis with possible aspiration 8. Hx of idiopathic PE: unclear if pt remains on anticoagulation therapy, will defer to PCP 9. Metabolic encephalopathy with underlying dementia 10. NSCLC: SCC. Hemonc following. 11. Coronary calcifications per CT Recommendations 1. Tele monitor was DCd yesterday, no monitoring overnight, discussed with staff. No palpitations or presyncopal symptoms. EF and WM normal. Will defer further to PCP 2. ASA. metoprolol. Nothing further cardiac sanchez. 3. Depending on family's preference, outpt event monitor is a consideration. Will continue with conservative measures. DENNISE GALEANA VP & GENERAL COUNSEL Dec 03, 2018 11:53
--- NOTE | 2018-12-03 12:44 | PDOC3 ---
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 Costa's last note ON CT , low attenuation along the pancreatic body and tail which could represent a manifestation of mild pancreatitis especially given provided history. Recommend correlation with lipase levels. No large pseudocyst is readily apparent, as queried. Area of low attenuation along the anterior/inferior aspect of the spleen may be artifactual from motion or could represent a small amount of fluid relating to pancreatitis. Patchy areas of groundglass opacity at the dependent aspect of the right lower lung. The appearance is nonspecific but a component of mild aspiration is a consideration given location. Calcific coronary artery disease as well as additional chronic weakness// debility, SEVERE PALLIATIVE CARE, PT DECLINES ADDITIONAL TREATMENT OF CANCER consult oncology REVIEWED GI FOLLOWING Leukocytosis -better - reactive process Hyperglycemia - off meds prior to admit pancreatitis 12/01 confused, thinks this is 1983 and he is at [facility] ON COMFORT MEASURES 37 MIN PT EXAM, CHART REVIEW d/c planning , > 50% OF TIME SPENT WITH EXAM, C [place] REVIEW, PT CARE COORDINATION Vitals Vitals Vital Signs Date Time Temp Pulse Resp B/P (MAP) Pulse Ox O2 Delivery O2 Flow Rate FiO2 12/03/18 09:07 109 162/75 12/03/18 08:00 Room Air 12/03/18 07:30 97.8 17 97 97.8 Physical Exam General: Alert, Cooperative, No acute distress Heart: Regular rate (SR/ST), Other (distant heart sounds) Lungs: Clear Abdomen: Normal bowel sounds, Soft, No tenderness Extremities: No clubbing, No cyanosis, No edema, Normal pulses Skin: No breakdown, No significant lesion Brief Hospital Course Mr. Ventura is a 78 old [sex] who presented with [DKA ] CONDITION AT DISCHARGE: Improved Discharge Medications Current Medications Sodium Chloride 1,000 ml @ 1,000 mls/hr 1X ONCE IV Last administered on 11/29/18at 22:00; Start 11/29/18 at 20:30; Stop 11/29/18 at 21:29; Status DC Sodium Chloride 500 ml @ 500 mls/hr 1X ONCE IV Last administered on 11/29/18at 23:12; Start 11/29/18 at 20:30; Stop 11/29/18 at 21:29; Status DC Lidocaine HCl (Glydo (Lidocaine) Jelly) 1 fiordaliza 1X ONCE MM Last administered on 11/29/18at 23:14; Start 11/29/18 at 22:45; Stop 11/29/18 at 22:46; Status DC Insulin Human Regular (HumuLIN R VIAL) 10 unit 1X ONCE IV Last administered on 11/29/18at 23:40; Start 11/29/18 at 23:15; Stop 11/29/18 at 23:16; Status DC Insulin Human Regular 150 ml @ 0 mls/hr 1X ONCE IV Last administered on 11/29/18at 23:55; Start 11/29/18 at 23:15; Stop 11/29/18 at 23:16; Status DC Sodium Bicarbonate (Sodium Bicarb Adult 8.4% Syr) 50 meq 1X ONCE IV Last administered on 11/29/18at 23:25; Start 11/29/18 at 23:15; Stop 11/29/18 at 23:16; Status DC Sodium Chloride 1,000 ml @ 1,000 mls/hr 1X ONCE IV Last administered on 11/29/18at 23:57; Start 11/29/18 at 23:15; Stop 11/30/18 at 00:14; Status DC Calcium Gluconate (Calcium Gluconate) 1,000 mg 1X ONCE IVP Last administered on 11/29/18at 23:15; Start 11/29/18 at 23:15; Stop 11/29/18 at 23:16; Status DC Sodium Chloride 1,000 ml @ 125 mls/hr Q8H IV Last administered on 11/30/18at 02:23; Start 11/29/18 at 23:30; Stop 11/30/18 at 02:51; Status DC Potassium Chloride/Water 100 ml @ 100 mls/hr Q1H IV Last administered on 11/30/18at 02:23; Start 11/30/18 at 02:00; Stop 11/30/18 at 02:59; Status DC Sodium Chloride 1,000 ml @ 250 mls/hr Q4H IV Last administered on 11/30/18at 02:55; Start 11/30/18 at 03:00; Stop 11/30/18 at 06:46; Status DC Insulin Human Regular 150 unit/ Sodium Chloride 151.5 ml @ 0 mls/hr CONT PRN PRN IV PER PROTOCOL; Start 11/30/18 at 02:45; Stop 11/30/18 at 13:47; Status DC Potassium Chloride/Water 100 ml @ 100 mls/hr PRN Q1HR PRN IV SEE COMMENTS; Start 11/30/18 at 02:45 Potassium Chloride/Water 100 ml @ 100 mls/hr PRN Q1HR PRN IV SEE COMMENTS; Start 11/30/18 at 02:45 Potassium Chloride/Water 100 ml @ 100 mls/hr PRN Q1HR PRN IV SEE COMMENTS; Start 11/30/18 at 02:45 Magnesium Sulfate 100 ml @ 25 mls/hr DAILY IV ; Start 11/30/18 at 09:00; Stop 12/03/18 at 08:59; Status DC Sodium Bicarbonate 50 meq/Sodium Chloride 1,050 ml @ 500 mls/hr Q2H6M PRN IV SEE COMMENTS; Start 11/30/18 at 02:37; Status UNV Sodium Phosphate 40 mmol/Sodium Chloride 513.3333 ml @ 83.3 mls/hr 1X PRN PRN IV SEE COMMENTS; Start 11/30/18 at 02:45 Sodium Phosphate 20 mmol/Dextrose 256.6667 ml @ 62.5 mls/hr 1X PRN PRN IV SEE COMMENTS; Start 11/30/18 at 02:45 Sodium Phosphate 10 mmol/Dextrose 253.3333 ml @ 62.5 mls/hr 1X PRN PRN IV SEE COMMENTS; Start 11/30/18 at 02:45 Potassium Chloride/Water 100 ml @ 100 mls/hr Q1H IV ; Start 11/30/18 at 03:00; Stop 11/30/18 at 03:05; Status DC Potassium Chloride/Water 100 ml @ 100 mls/hr 1X ONCE IV Last administered on 11/30/18at 03:35; Start 11/30/18 at 03:00; Stop 11/30/18 at 03:59; Status DC Potassium Chloride/Water 100 ml @ 100 mls/hr 1X ONCE IV ; Start 11/30/18 at 05:00; Stop 11/30/18 at 05:59; Status DC Potassium Chloride/Water 100 ml @ 100 mls/hr Q1H IV Last administered on 11/30/18at 05:09; Start 11/30/18 at 06:00; Stop 11/30/18 at 06:59; Status DC Potassium Chloride/Water 100 ml @ 100 mls/hr Q1H IV Last administered on 11/30/18at 05:55; Start 11/30/18 at 06:00; Stop 11/30/18 at 06:59; Status DC Dextrose/Sodium Chloride 1,000 ml @ 250 mls/hr Q4H IV Last administered on 11/30/18at 07:17; Start 11/30/18 at 07:00; Stop 11/30/18 at 08:52; Status DC Insulin Glargine (Lantus Syringe) 30 unit DAILY SQ ; Start 11/30/18 at 09:00; Stop 11/30/18 at 08:52; Status DC Insulin Human Lispro (HumaLOG) 18 units TIDWMEALS SQ ; Start 11/30/18 at 12:00; Stop 11/30/18 at 08:53; Status DC Insulin Human Lispro (HumaLOG) 0-9 UNITS TIDWMEALS SQ Last administered on 12/03/18at 12:27; Start 11/30/18 at 12:00 Dextrose (Dextrose 50%-Water Syringe) 12.5 gm PRN Q15MIN PRN IV SEE COMMENTS Last administered on 11/30/18at 12:43; Start 11/30/18 at 08:45 Heparin Sodium (Porcine) (Heparin Sodium) 5,000 unit BID SQ Last administered on 12/03/18at 09:15; Start 11/30/18 at 09:00 Sodium Chloride 1,000 ml @ 100 mls/hr Q10H IV Last administered on 11/30/18at 09:00; Start 11/30/18 at 09:00; Stop 11/30/18 at 12:55; Status DC Insulin Glargine (Lantus Syringe) 22 unit DAILY SQ Last administered on 12/03/18at 09:15; Start 11/30/18 at 09:00; Stop 12/03/18 at 11:17; Status DC Insulin Human Lispro (HumaLOG) 15 units TIDWMEALS SQ Last administered on 12/03/18at 09:13; Start 11/30/18 at 09:00 Dextrose/Sodium Chloride 1,000 ml @ 100 mls/hr Q10H IV Last administered on 12/01/18at 01:13; Start 11/30/18 at 13:00; Stop 12/01/18 at 10:18; Status DC Insulin Human Lispro (HumaLOG) 12 units ONCE ONCE SQ ; Start 12/01/18 at 11:00; Stop 12/01/18 at 11:03; Status DC Aspirin (Ecotrin) 81 mg DAILYWBKFT PO Last administered on 12/03/18at 09:07; Start 12/02/18 at 11:00 Metoprolol Tartrate (Lopressor) 12.5 mg BID PO Last administered on 12/03/18at 09:07; Start 12/02/18 at 11:00 Insulin Glargine (Lantus Syringe) 26 unit DAILY SQ Last administered on 12/03/18at 12:28; Start 12/03/18 at 11:30 Active Scripts Active Reported Metformin Hcl Er (Metformin Hcl) 1,000 Mg Tab.er.24 1,000 Mg PO DAILYWBKFT Proair Hfa Inhaler (Albuterol Sulfate) 8.5 Gm Hfa.aer.ad 2 Puff INH PRN Q6HRS PRN Vital Signs Vital Signs Date Time Temp Pulse Resp B/P (MAP) Pulse Ox O2 Delivery O2 Flow Rate FiO2 12/03/18 11:28 98.0 83 15 112/60 (77) 97 Room Air 98.0 Labs Laboratory Tests Test 12/01/18 16:41 12/01/18 21:08 12/02/18 03:10 12/02/18 07:26 Glucose (Fingerstick) 184 mg/dL (70-99) 218 mg/dL (70-99) 283 mg/dL (70-99) White Blood Count 11.8 x10^3/uL (4.0-11.0) Red Blood Count 5.01 x10^6/uL (4.30-5.70) Hemoglobin 13.9 g/dL (13.0-17.5) Hematocrit 41.4 % (39.0-53.0) Mean Corpuscular Volume 83 fL (79-100) Mean Corpuscular Hemoglobin 28 pg (25-35) Mean Corpuscular Hemoglobin Concent 34 g/dL (31-37) Red Cell Distribution Width 14.6 % (11.5-14.5) Platelet Count 205 x10^3/uL (140-400) Neutrophils (%) (Auto) 80 % (31-73) Lymphocytes (%) (Auto) 13 % (24-48) Monocytes (%) (Auto) 5 % (0-9) Eosinophils (%) (Auto) 1 % (0-3) Basophils (%) (Auto) 1 % (0-3) Neutrophils # (Auto) 9.4 x10^3/uL (1.8-7.7) Lymphocytes # (Auto) 1.5 x10^3/uL (1.0-4.8) Monocytes # (Auto) 0.6 x10^3/uL (0.0-1.1) Eosinophils # (Auto) 0.1 x10^3/uL (0.0-0.7) Basophils # (Auto) 0.1 x10^3/uL (0.0-0.2) Sodium Level 145 mmol/L (136-145) Potassium Level 4.1 mmol/L (3.5-5.1) Chloride Level 109 mmol/L (98-107) Carbon Dioxide Level 22 mmol/L (21-32) Anion Gap 14 (6-14) Blood Urea Nitrogen 27 mg/dL (8-26) Creatinine 1.5 mg/dL (0.7-1.3) Estimated GFR (Cockcroft-Gault) 54.5 BUN/Creatinine Ratio 18 (6-20) Glucose Level 286 mg/dL (70-99) Calcium Level 9.1 mg/dL (8.5-10.1) Magnesium Level 2.0 mg/dL (1.8-2.4) Total Bilirubin 0.6 mg/dL (0.2-1.0) Aspartate Amino Transf (AST/SGOT) 16 U/L (15-37) Alanine Aminotransferase (ALT/SGPT) 13 U/L (16-63) Alkaline Phosphatase 91 U/L (46-116) WJ-Suc-Z-Type Natriuretic Peptide 317 pg/mL (0-449) Total Protein 7.1 g/dL (6.4-8.2) Albumin 2.8 g/dL (3.4-5.0) Albumin/Globulin Ratio 0.7 (1.0-1.7) Triglycerides Level 130 mg/dL (0-150) Cholesterol Level 139 mg/dL (0-200) LDL Cholesterol, Calculated 63 mg/dL (0-100) VLDL Cholesterol, Calculated 26 mg/dL (0-40) Non-HDL Cholesterol Calculated 89 mg/dL (0-129) HDL Cholesterol 50 mg/dL (40-60) Cholesterol/HDL Ratio 2.8 Thyroid Stimulating Hormone (TSH) 1.936 uIU/mL (0.358-3.74) Test 12/02/18 11:23 12/02/18 16:58 12/02/18 21:35 12/03/18 08:47 Glucose (Fingerstick) 310 mg/dL (70-99) 261 mg/dL (70-99) 189 mg/dL (70-99) 290 mg/dL (70-99) Test 12/03/18 11:50 Glucose (Fingerstick) 177 mg/dL (70-99) Laboratory Tests Test 12/02/18 16:58 12/02/18 21:35 12/03/18 08:47 12/03/18 11:50 Glucose (Fingerstick) 261 mg/dL (70-99) 189 mg/dL (70-99) 290 mg/dL (70-99) 177 mg/dL (70-99) Allergies Allergies Coded Allergies Type Severity Reaction Last Updated Verified No Known Drug Allergies 07/01/13 No Disposition/Orders: Other (d/c to snf) Patient Instructions D/C PLANNING 37 MIN SAL VELEZ MD Dec 03, 2018 12:44
[2018-12-03] MEDS ORDERED: ASPI-612 PO (12:46)
[2018-12-03] MEDS ORDERED: INSU100V8 SQ (12:46)
[2018-12-03] MEDS ORDERED: METO25TA4 PO (12:46)
[2018-12-03] MEDS ORDERED: INSU100I11 SQ (12:46)
--- NOTE | 2018-12-03 12:48 | SNU/HH DC ---
DISCHARGE ORDERS DISCHARGE INFORMATION: CONDITION ON DISCHARGE: Guarded CODE STATUS: Code Status: DNR/DNI PRISON: SNF STAY <30 DAYS: Yes HOSPICE: HOSPICE: No HOSPICE EVAL & TREAT: No LTAC: ADMIT TO LTAC: No POST DISCHARGE ORDERS: ACTIVITY ORDERS: Activity as tolerated DIET AFTER DISCHARGE: ADA CHECKS AFTER DISCHARGE: CHECKS AFTER DISCHARGE: Check blood press - daily TREATMENT/EQUIPMENT ORDERS: Physical Therapy For: Evalulation/Treatment Occupational Therapy For: Evaluation/Treatment Speech Language Pathology For: Evaluation/Treatment DISCHARGE MEDICATIONS: Home Meds Active Scripts Insulin Lispro (HUMALOG) 100 Unit/1 Ml Insuln.pen, 15 UNITS SQ TIDWMEALS for DIABETES for 30 Days, #2 EACH Prov:SAL VELEZ MD 12/03/18 Insulin Glargine,Hum.rec.anlog (LANTUS) 100 Unit/1 Ml Vial, 26 UNIT SQ DAILY for GLUCOSE for 30 Days, #2 EACH Prov:SAL VELEZ MD 12/03/18 Aspirin (ASPIRIN EC) 81 Mg Tablet.dr, 81 MG PO DAILYWBKFT for HEART HEALTH for 30 Days, #30 TAB.SR Prov:SAL VELEZ MD 12/03/18 Metoprolol Tartrate (METOPROLOL TARTRATE) 25 Mg Tablet, 12.5 MG PO BID for BP for 30 Days, #30 TAB Prov:SAL VELEZ MD 12/03/18 Reported Medications Albuterol Sulfate (PROAIR HFA INHALER) 8.5 Gm Hfa.aer.ad, 2 PUFF INH PRN Q6HRS PRN for SHORTNESS OF BREATH 07/27/15 Discontinued Reported Medications Metformin Hcl (METFORMIN HCL ER) 1,000 Mg Tab.er.24, 1000 MG PO DAILYWBKFT 11/21/16 SAL VELEZ MD Dec 03, 2018 12:48
--- NOTE | 2018-12-03 14:15 | NUR ---
Discharge Note: [facility] Discharge instructions and discharge home medications reviewed with Heena ESCOBAR at [facility] and a copy given. All questions have been answered and understanding verbalized. The following instructions and handouts were given: transportation Discontinued IV lines and skin intact. Patient discharged to Heena ESCOBAR with [facility] via ambulance.
[2018-12-03 15:00] VITALS: BP 132/81
[2018-12-03] MEDS ORDERED: FLU VAX QS 2019-20 (36MOS+)/PF 0.5 ML SYRINGE. VAX IM ONE (15:00)
--- NOTE | 2018-12-03 15:29 | NUR ---
SS following up with discharge planning. Discharge orders received for [facility], ; fax [phone]. SS phoned and faxed discharge orders to [facility]. Pt will discharge today and go to [facility] between 1600 and 1630 via [facility] transportation. Pt, pt's RN, and pt's family notified.
--- NOTE | 2018-12-03 16:31 | NUR ---
Transportation took pt to [facility] via wheelchair , pt's nephew Maxi walked with patient and transportation.
--- NOTE | 2018-12-10 21:57 | CONS ---
DATE OF CONSULTATION: 12/02/2018 REFERRING PHYSICIANS: 1. Destiny Krueger MD 2. Yan Saul MD 3. 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 He received 54 Gy of chest radiation with chemotherapy completed here in March 2012. Following this, he was noted to have progressive nodule in the apex of the left lung when last seen as an outpatient in 04/2017. At that time, he had no interest in further assessment and desired observation. He has now been hospitalized here following an episode of lethargy and weakness and poor p.o. intake and was found to be markedly hyperglycemic with a blood sugar of 900. He has now been stabilized. 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 ICD-10: C34.90, C34.12. Since correction of his diabetic ketoacidosis, he is feeling well at the time of this consult on 12/02 interested in going home as soon as possible. He denies any chest symptoms. He has not had further imaging of his chest since 04/2017 and does not desire additional CT imaging at this time. Chest x-ray prior to discharge revealed right upper lobe atelectasis, reflecting previous treatment. No other nodularity was noted in either lung. PAST MEDICAL HISTORY: Remarkable for hypertension, hyperlipidemia, diabetes. MEDICATIONS: See hospital list. SOCIAL HISTORY: History of smoking up to the previous lung cancer diagnosis, quit in 2012, lives independently. PHYSICAL EXAMINATION: Omitted at this time. LABORATORY STUDIES: On 12/02/2018, hemoglobin 13.9, white count 11,800, platelet count 205,000. Chemistry panel on 12/02/2018, sodium 145, potassium 4.1, creatinine 1.5, glucose 286. ASSESSMENT AND PLAN: In summary, my impression is that of history of stage 2B squamous cell carcinoma of the right lung with no progression of disease since initial treatment in March 2012. In the past, he had possible stage 1 bronchogenic carcinoma of the left lung noted in 04/2017. He has had no further CT imaging since that time, it did measure only 9 x 7 mm in 04/2017. He is not interested in further imaging is not interested in further therapy. He has no significant chest symptoms and is anxious for discharge. In this regard, we have dismissed him from our followup. Certainly in the event that he has chest symptoms in the future, we would be happy to see him for further assessment. Thank you again for allowing us to participate in his evaluation. ROSEMARY MELARA MD DR: DILSHAD/sony JOB#: [id number] / [id number] NATE
== END 2018-12-03 16:30 | DRG 682 ==
LOC: ER 20:21 → 1 WEST ICU 23:49 → 6 SOUTH 11-30 20:50
PROVIDERS: ADMIT Family Medicine; ATTEND Family Medicine
DX: N17.0 Acute kidney failure with tubular necrosis (principal); E11.10 Type 2 diabetes mellitus with ketoacidosis without coma; K85.90 Acute pancreatitis without necrosis or infection, unspecified; G93.41 Metabolic encephalopathy; C34.91 Malignant neoplasm of unspecified part of right bronchus or lung; C34.92 Malignant neoplasm of unspecified part of left bronchus or lung; I47.2 Ventricular tachycardia; J98.11 Atelectasis; R65.10 Systemic inflammatory response syndrome (SIRS) of non-infectious origin without acute organ dysfunction; E87.2 Acidosis; E87.5 Hyperkalemia; E78.5 Hyperlipidemia, unspecified; F03.90 Unspecified dementia, unspecified severity, without behavioral disturbance, psychotic disturbance, mood disturbance, and anxiety; M19.90 Unspecified osteoarthritis, unspecified site; I10 Essential (primary) hypertension; I25.10 Atherosclerotic heart disease of native coronary artery without angina pectoris; K21.9 Gastro-esophageal reflux disease without esophagitis; Z59.9 Problem related to housing and economic circumstances, unspecified; Z80.42 Family history of malignant neoplasm of prostate; Z82.49 Family history of ischemic heart disease and other diseases of the circulatory system; Z85.118 Personal history of other malignant neoplasm of bronchus and lung; Z86.711 Personal history of pulmonary embolism; Z87.891 Personal history of nicotine dependence; Z90.2 Acquired absence of lung [part of]; Z91.14 Patient's other noncompliance with medication regimen; Z92.21 Personal history of antineoplastic chemotherapy; Z92.3 Personal history of irradiation
CPT/HCPCS: 36415; 36600; 51702; 71045; 74176; 80048; 80053; 80061; 81001; 82805; 82962; 83690; 83735; 83880; 84100; 84443; 84484; 85007; 85025; 85610; 90471; 90686; 93005; 93306; 96361; 96365; 96375; 96376; J0610; J1644; J1815; J3480; J7030; J7040; J7042; 97110; 97116; 97530; 97535; 99291-25; G0378

== ENCOUNTER 2019-11-11 13:20 | Emergency (ER) | payer MEDICARE ==
[~2019-11-11] VITALS: Ht 177.8 cm; Wt 85.0 kg
[~2019-11-11 13:20] MED LIST changes: +ASPI-886 PO; +INSU100I11 SQ; +INSU100V8 SQ; +METF-658 PO; -METF500T11 PO; +METO25TA4 PO; +WARF1TAB2 PO; -WARF1TAB74 PO
[2019-11-11 14:22] VITALS: BP 133/61
[2019-11-11] MEDS ORDERED: FLUT10.6 IH (15:34)
[2019-11-11] MEDS ORDERED: VENTOLIN HFA18 GM INH (15:34)
[2019-11-11] MEDS ORDERED: PRED20TA PO (15:34)
--- NOTE | 2019-11-11 15:34 | PHYS DOC ---
Past Medical History Past Medical History: Cancer, Diabetes-Type II, Hypertension, Other Additional Past Medical Histor: CATARACTS Past Surgical History: Other Additional Past Surgical Histo: cataracts Smoking Status: Former Smoker Alcohol Use: Sober Drug Use: None General Adult EDM: Chief Complaint: SHORTNESS OF BREATH HPI: HPI: 79-year-old male past medical history significant for insulin-dependent diabetes, hypertension, and former tobacco dependence, presents to the ED with complaints of " I am out of my inhaler and need a refill." Does not believe he has been around anyone with COVID. States his primary care physician referred him here. Reports intermittent episodes of shortness of breath that he routinely uses his inhaler (1-2x/day). Currently denies dyspnea. No official diagnosis of COPD or asthma. Has never been admitted for lung disease or difficulties breathing. No recent trauma, surgeries or hospitalizations. No history of DVT or PE. Pt not the best historian. Review of Systems: Review of Systems: Constitutional: Denies fever or chills. [] Eyes: Denies change in visual acuity. [] HENT: Denies nasal congestion or sore throat. [] Respiratory: Denies cough or hemoptysis Cardiovascular: Denies chest pain or edema. [] GI: Denies abdominal pain, nausea, vomiting, bloody stools or diarrhea. [] : Denies dysuria, hematuria Musculoskeletal: Denies back pain or joint pain. [] Integument: Denies rash. [] Neurologic: Denies headache, focal weakness or sensory changes. [] Psychiatric: Denies depression or anxiety. [] Heart Score: Risk Factors: Risk Factors: DM, Current or recent (<one month) smoker, HTN, HLP, family history of CAD, obesity. Risk Scores: Score 0 - 3: 2.5% MACE over next 6 weeks - Discharge Home Score 4 - 6: 20.3% MACE over next 6 weeks - Admit for Clinical Observation Score 7 - 10: 72.7% MACE over next 6 weeks - Early Invasive Strategies Allergies: Allergies: Allergies Coded Allergies Type Severity Reaction Last Updated Verified No Known Drug Allergies 07/01/13 No Physical Exam: PE: Constitutional: Well developed, well nourished, no acute distress, non-toxic appearance. [] HENT: Normocephalic, atraumatic, Eyes: EOMI, conjunctiva normal, no discharge. [] Neck: Normal range of motion, supple, Cardiovascular:Heart rate regular rhythm, no murmur [] Lungs & Thorax: Bilateral breath sounds with expiratory wheezing, no stridor, no retractions, speaking in full sentences Abdomen: Bowel sounds normal, soft, no tenderness, no masses, no pulsatile masses. [] Skin: Warm, dry, no erythema, no rash. [] Back: No tenderness, no CVA tenderness. [] Extremities: No tenderness, no cyanosis, no clubbing, ROM intact, no edema. [] Neurologic: Alert and oriented X 3, normal motor function, normal sensory function, no focal deficits noted. [] Psychologic: Affect normal, judgement normal, mood normal. [] Current Patient Data: Vital Signs: Vital Signs Date Time Temp Pulse Resp B/P (MAP) Pulse Ox O2 Delivery O2 Flow Rate FiO2 11/11/19 14:22 98.2 68 20 133/61 (85) 95 Room Air 98.2 EKG: EKG: [] Radiology/Procedures: Radiology/Procedures: [] Course & Med Decision Making: Course & Med Decision Making Pertinent Labs and Imaging studies reviewed. (See chart for details) COVID-19 CRITERIA: The patient was evaluated during the global COVID-19 pandemic, and that diagnosis was suspected/considered upon their initial p resentation. Their evaluation, treatment and testing was consistent with current guidelines for patients who present with complaints or symptoms that may be related to COVID-19. Encounter for albuterol inhaler refill. Pt refusing any lab work, chest x-ray, breathing treatments, steroids/medications or further emergency department evaluation. Patient has medical decision-making capacity and was made aware of life-threatening processes that were not excluded. Will refill prescription but advised patient to return to ED immediately if symptoms should persist or worsen. Encouraged urgent outpatient follow-up with PMD and pulmonology. Pt was educated on all prescription medications and adverse effects. All patient's questions were answered and pt was stable at time of discharge. Differential includes ACS, dysrhythmia, pneumothorax or hemothorax, pulmonary embolus, pneumonia, bronchoconstriction, pulmonary edema, angioedema, epiglottitis, tracheitis, David's angina, RPA/SOLE PAINTER, anaphylaxis, angioedema, cardiac tamponade or murmurs, pericarditis, myocarditis, poisoning or toxicity, sepsis or autoimmune/neurologic disease. The patient has decided to leave our facility against medical advice. I have assessed patient's ability to make informed decision and feel the patient has the capacity to comprehend information regarding the current medical condition and appreciates the impact of the disease or condition and the consequences of various options for treatment, including foregoing treatment. The patient possesses the ability to evaluate all treatment options, comparing the risks and benefits of each option, communicate his or her choice in a consistent manner over time, and is able to make rational choices. I explained to the patient further testing, treatment, and evaluation I would like to perform in the emergency department visit as well as any possible alternatives that can be accomplished in a timely manner. I have outlined the possible risks of foregoing any or all of these interventions and the patient understands and acknowledges that the decision to leave may result in undesirable consequences such as , permanent disability, and/or loss of current lifestyle. Even though leaving AMA is not ideal, I have instructed the patient to follow any discharge instructions given, take any medications prescribed, and resume care as soon as possible with another provider. This conversation was witnessed by another member of the emergency department staff and we clearly communicated the patient is welcome to return anytime to continue care at our facility. Dragon Disclaimer: Dragon Disclaimer: This electronic medical record was generated, in whole or in part, using a voice recognition dictation system. Departure Departure Impression: Primary Impression: Encounter for medication refill Additional Impressions: COPD (chronic obstructive pulmonary disease) Tachycardia Disposition: 07 AGAINST MEDICAL ADVICE Condition: STABLE Referrals: RAMO BROOKS MD (PCP) Patient Instructions: Chronic Obstructive Pulmonary Disease Exacerbation, Form - Rejection of Medical Treatment (AMA) Additional Instructions: Geri Dozier MD in 1-2 days Primary Specialties [facility] [place] Address: [address] [facility] [facility] [address] [facility] [address] [facility] [address] [place] [address] Suresh Garza MD Pulmonary Medicine-for official lung diagnosis [facility] Address: [address] [place] [address] Scripts Fluticasone Propionate (FLOVENT 44MCG HFA) 10.6 Gm Aer.w.adap 2 PUFF IH BID for 30 Days, #1 INHALER 2 Refills Prov: ALYSHA SINGH DO 11/11/19 Albuterol Sulfate (VENTOLIN HFA INHALER) 18 Gm Hfa.aer.ad 2 PUFF INH Q4HRS for FOR ASTHMA for 7 Days, #1 INHALER 0 Refills Prov: ALYSHA SINGH DO 11/11/19 Prednisone (PREDNISONE) 20 Mg Tablet 2 TAB PO DAILY, #5 TAB Prov: ALYSHA SINGH DO 11/11/19 Justicifation of Admission Dx: Justifications for Admission: Justification of Admission Dx: N/A ALYSHA SINGH DO Nov 11, 2019 15:34
== END 2019-11-11 15:41 | disposition left against medical advice (07) ==
LOC: ER 13:20
DX: J44.9 Chronic obstructive pulmonary disease, unspecified (principal); I47.1 Supraventricular tachycardia; R06.02 Shortness of breath; Z76.0 Encounter for issue of repeat prescription; E11.9 Type 2 diabetes mellitus without complications; I10 Essential (primary) hypertension; Z98.890 Other specified postprocedural states; Z87.891 Personal history of nicotine dependence
CPT/HCPCS: 99283